=== PATIENT | female | born 1935 | race Asian ===

== ENCOUNTER 2017-02-06 13:56 | Inpatient (IN) | payer BC, MEDICARE, OTHER ==
[~2017-02-06] VITALS: Ht 165.1 cm; Wt 53.5 kg
[~2017-02-06 13:56] MED LIST: IBUPROFEN200 M2 ORAL; MULTIVITAMINS1 EA14 PO; NKM
[2017-02-06] MEDS ORDERED: NKM (14:22)
[2017-02-06 15:07] LABS: ANION GAP 9 mmol/L (5-15); CALCIUM 8.2 MG/DL (8.5-10.1); CARBON DIOXIDE 25 MMOL/L (21-32); CHLORIDE 107 MMOL/L (98-107); CREATININE 0.9 MG/DL (0.55-1.30); POTASSIUM 3.7 MMOL/L (3.5-5.1); SODIUM 141 MMOL/L (136-145)
[2017-02-06 15:19] LABS: MEAN CORPUSCULAR HGB CONC 28.4 G/DL (32.0-36.0); MEAN CORPUSCULAR VOLUME 74 FL (80-99); MEAN PLATELET VOLUME 6.9 FL (6.5-10.1); PLATELET COUNT 227 K/UL (150-450); RED BLOOD COUNT 2.35 M/UL (4.20-5.40); RED CELL DISTRIBUTION WIDTH 21.1 % (11.6-14.8)
[2017-02-06 15:20] LABS: ALANINE AMINOTRANSFERASE 14 U/L (12-78); ALBUMIN/GLOBULIN RATIO 0.7 (1.0-2.7); ASPARTATE AMINO TRANSFERASE 28 U/L (15-37); CKMB 4.7 NG/ML (0.0-3.6); TOTAL PROTEIN 6.3 G/DL (6.4-8.2)
[2017-02-06 16:23] VITALS: BP 133/48
--- NOTE | 2017-02-06 16:33 | Emergency Room Report ---
History of Present Illness General Chief Complaint: Edema Source: Patient Present Illness HPI 81-year-old female presents to ED for evaluation. States that for the last several weeks she's been experiencing leg swelling. Patient denies any chest pain or shortness of breath. States that she does feel tired after walking. Denies fevers or chills. Denies cough. Denies sick contacts or recent travel. No other aggravating relieving factors. Denies any other associated symptoms Allergies: Coded Allergies: No Known Allergies (Unverified , 12/11/12) Patient History Past Medical History: none Past Surgical History: none Pertinent Family History: none Social History: Denies: smoking, alcohol use, drug use Now: No Immunizations: UTD Reviewed Nursing Documentation: PMH: Agreed, PSxH: Agreed Nursing Documentation-PMH Past Medical History: No Stated History Hx Cardiac Problems: No Hx Cancer: No Hx Gastrointestinal Problems: No Hx Neurological Problems: No Review of Systems All Other Systems: negative except mentioned in HPI Physical Exam Vital Signs Date Time Temp Pulse Resp B/P (MAP) Pulse Ox O2 Delivery O2 Flow Rate FiO2 02/06/17 14:14 98.4 72 18 114/70 100 Room Air Sp02 EP Interpretation: reviewed, normal General Appearance: no apparent distress, alert, GCS 15, non-toxic Head: normocephalic, atraumatic Eyes: bilateral eye normal inspection, bilateral eye PERRL ENT: hearing grossly normal, normal pharynx, no angioedema, normal voice Neck: full range of motion, supple/symm/no masses Respiratory: chest non-tender, lungs clear, normal breath sounds, speaking full sentences Cardiovascular #1: regular rate, rhythm, no edema Cardiovascular #2: 2+ carotid (R), 2+ carotid (L), 2+ radial (R), 2+ radial (L) , 2+ dorsalis pedis (R), 2+ dorsalis pedis (L) Gastrointestinal: normal bowel sounds, non tender, soft, non-distended, no guarding, no rebound Rectal: deferred Genitourinary: normal inspection, no CVA tenderness Musculoskeletal: back normal, gait/station normal, normal range of motion, swelling Neurologic: alert, oriented x3, responsive, motor strength/tone normal, sensory intact, speech normal Psychiatric: judgement/insight normal, memory normal, mood/affect normal, no suicidal/homicidal ideation Reflexes: 3+ bicep (R), 3+ bicep (L), 3+ tricep (R), 3+ tricep (L), 3+ knee (R) , 3+ knee (L) Skin: normal color, no rash, warm/dry, well hydrated Lymphatic: no adenopathy Procedures Critical Care Time Critical Care Time i. I feel this is a highly complex case requiring extensive working including EKG/Rhythm strip, Xray/CT/US, Blood/urine lab work, repeat exams while in ED, and administration of strong opiates/narcotics for pain control, admission to hospital or close patient follow up. Total time: 30 min bedside evaluation and treatment excludes procedures (EKG). Reason for critical care: anemia, new onset CHF, demand ischemia Possible complications: hypotension, hypertension, NJ, shock, arrhythmias, metabolic acidosis, end organ damage, respiratory failure. Interventions: Labs, IV fluids, EKG, chest x-ray, blood transfusion Course: Patient presenting with swelling of the bilateral legs, feeling tired. Labs show new onset CHF, hemoglobin 4.9, troponin elevated consistent with demand ischemia. Vital stable. Patient showing no signs of distress. Blood transfusion ordered Consultations: nursing staff, EMS, family Performed by: Dr Tena Tolerated well condition = critical j. because of unstable vital signs this patient had a condition that could potentially threaten life or limb. I feel this is a critical patient who required my full attention while patient was considered critical. Total Critical Care Time excluding procedures was greater than 35 minutes Medical Decision Making Diagnostic Impression: Primary Impression: Acute exacerbation of CHF (congestive heart failure) Qualified Codes: I50.9 - Heart failure, unspecified Additional Impressions: Anemia Qualified Codes: D64.9 - Anemia, unspecified Demand ischemia ER Course Hospital Course 81-year-old female presents ED complaining of shortness of breath, leg swelling Differential diagnoses include: NJ/unstable angina, contusion, muscle strain, PTX, rib fracture Clinical course Patient placed on stretcher. on salvage grinder. After initial history and physical I ordered labs, EKG, chest x-ray, labs reviewed- no leukocytosis, hemoglobin 4.9, electrolytes ok, troponins > 1.5 , BNP elevated EKG - NSR, RBBB, no acute ischemic changes Chest x-ray- CHF Patient not having any active chest pain. No acute ischemic signs on EKG. Elevated troponin likely demand ischemia. upgraded to [facility]. Blood transfusion ordered. Discussed with Dr. Norman Winchester. I feel this is a highly complex case requiring extensive working including EKG/Rhythm strip, Xray/CT/US, Blood/urine lab work, repeat exams while in ED, and administration of strong opiates/narcotics for pain control, admission to hospital or close patient follow up. Diagnosis - CHF exacerbation, anemia, demand ischemia admitted to [facility] in critical condition Labs Test 02/06/17 14:50 02/06/17 15:06 Prothrombin Time 10.0 SEC (9.30-11.50) Prothromb Time International Ratio 1.0 (0.9-1.1) Activated Partial Thromboplast Time 24 SEC (23-33) Sodium Level 141 MMOL/L (136-145) Potassium Level 3.7 MMOL/L (3.5-5.1) Chloride Level 107 MMOL/L (98-107) Carbon Dioxide Level 25 MMOL/L (21-32) Anion Gap 9 mmol/L (5-15) Blood Urea Nitrogen 19 mg/dL (7-18) Creatinine 0.9 MG/DL (0.55-1.30) Estimat Glomerular Filtration Rate mL/min (>60) Glucose Level 102 MG/DL (74-106) Calcium Level 8.2 MG/DL (8.5-10.1) Total Bilirubin 0.3 MG/DL (0.2-1.0) Aspartate Amino Transf (AST/SGOT) 28 U/L (15-37) Alanine Aminotransferase (ALT/SGPT) 14 U/L (12-78) Alkaline Phosphatase 76 U/L (46-116) Total Creatine Kinase 116 U/L (26-308) Creatine Kinase MB 4.7 NG/ML (0.0-3.6) Creatine Kinase MB Relative Index 4.0 Troponin I 1.506 ng/mL (0.000-0.056) Pro-B-Type Natriuretic Peptide 1465 pg/mL (0-125) Total Protein 6.3 G/DL (6.4-8.2) Albumin 2.6 G/DL (3.4-5.0) Globulin 3.7 g/dL Albumin/Globulin Ratio 0.7 (1.0-2.7) White Blood Count 8.0 K/UL (4.8-10.8) Red Blood Count 2.35 M/UL (4.20-5.40) Hemoglobin 4.9 G/DL (12.0-16.0) Hematocrit 17.4 % (37.0-47.0) Mean Corpuscular Volume 74 FL (80-99) Mean Corpuscular Hemoglobin 21.0 PG (27.0-31.0) Mean Corpuscular Hemoglobin Concent 28.4 G/DL (32.0-36.0) Red Cell Distribution Width 21.1 % (11.6-14.8) Platelet Count 227 K/UL (150-450) Mean Platelet Volume 6.9 FL (6.5-10.1) Neutrophils (%) (Auto) % (45.0-75.0) Lymphocytes (%) (Auto) % (20.0-45.0) Monocytes (%) (Auto) % (1.0-10.0) Eosinophils (%) (Auto) % (0.0-3.0) Basophils (%) (Auto) % (0.0-2.0) EKG Diagnostic Results Rate: normal Rhythm: NSR ST Segments: other - RBBB ASA given to the pt in ED: No Rhythm Strip Diag. Results EP Interpretation: yes Rhythm: NSR, no PVC's, no ectopy Chest X-Ray Diagnostic Results Chest X-Ray Diagnostic Results : Chest X-Ray Ordered: Yes # of Views/Limited/Complete: 1 View Indication: Shortness of Breath EP Interpretation: Yes Interpretation: no consolidation, no pneumothorax, other - cardiomegaly. effusion Impression: Other - chf Electronically Signed by: Electronically signed by Iglesia Tena MD Last Vital Signs Date Time Temp Pulse Resp B/P (MAP) Pulse Ox O2 Delivery O2 Flow Rate FiO2 02/06/17 16:23 98.6 66 16 133/48 97 Room Air Status: improved Disposition: ADMITTED INPATIENT Condition: Critical Referrals: LUCIO FRANKLIN (PCP) IGLESIA TENA M.D. Feb 06, 2017 16:33
[2017-02-06 17:09] LABS: NEUTROPHILS % (MANUAL) 68 % (45-75); TOTAL CELLS COUNTED 100
[2017-02-06 17:10] LABS: EOSINOPHILS % (MANUAL) 1 % (0-3); LYMPHOCYTES % (MANUAL) 23 % (20-45)
[2017-02-06 17:11] LABS: ANISOCYTOSIS 3+; BAND NEUTROPHILS % (MANUAL) 0 % (0-8); BASOPHILS % (MANUAL) 1 % (0-2); HYPOCHROMASIA 3+; MICROCYTES 1+; PLATELET ESTIMATE ADEQUATE; PLATELET MORPHOLOGY NORMAL
[2017-02-06 20:00] VITALS: BP 153/81
[2017-02-06] MEDS ORDERED: KCl 10% 20 mEq/15ml liquid ORAL ONE (21:00)
[2017-02-06 21:10] VITALS: BP 148/72
[2017-02-06 21:25] VITALS: BP 123/67
--- NOTE | 2017-02-06 21:45 | Consultation ---
DATE OF CONSULTATION: 02/06/2017 CARDIOLOGY CONSULTATION CONSULTING PHYSICIAN: Blu Hoskins M.D. REQUESTING PHYSICIAN: Norris Austin M.D. REASON FOR CONSULTATION: Acute myocardial infarction. HISTORY OF PRESENT ILLNESS: This is a pleasant 81-year-old [place] Chinese female. She presented to the emergency room with progressive shortness of breath, weakness, and general malaise. She notes symptoms progressing over the past week. She notes on questioning that her stool may have had some blood in it on some occasions although "not much." She denies any nausea or vomiting. She denies any chest pain. She was seen in the emergency room and was noted to have significant anemia with hemoglobin less than 5 g and an elevated troponin level of 1.5. The patient was hospitalized here in March of 2015. At that time, with a wrist pain due to contusion that was treated nonsurgically and at that time, bradyarrhythmias, at which point, the patient refused consideration for a permanent pacemaker. She has not had any subsequent syncopal episodes, dizzy spells, or loss of consciousness. She denies any difficulty with her exercise capacity since March 2015 up until the event precipitating this admission. PAST MEDICAL HISTORY: Status post cataract surgery, osteoarthritis, and sinus node disease. MEDICATIONS: Prior to admission, occasional ibuprofen. ALLERGIES: None. SOCIAL HISTORY: Negative for smoking, alcohol, or substance abuse. FAMILY HISTORY: Noncontributory. REVIEW OF SYSTEMS: A 10-point review of systems performed. All systems negative other than noted above. Additionally in 2016, a 2D echocardiogram done here was notable for normal ejection fraction with minimal degenerative valve disease and normal PA systolic pressures. PHYSICAL EXAMINATION: GENERAL: The patient is well developed, well nourished, slight pallor, and in no acute distress. VITAL SIGNS: Blood pressure 133/48, pulse 66, respirations 16, and afebrile. T-max 99.9. HEENT: Normocephalic and atraumatic. Conjunctival pallor. Oropharynx clear. NECK: Supple. Jugular venous pressure is normal. LUNGS: Clear with no breast masses. CARDIAC: Regular rhythm and rate. Frequent ectopic beats. Normal S1 and S2. A 1/6 systolic murmur in the lower left sternal border. ABDOMEN: Soft and nontender. No focal tenderness, guarding, masses, or rebound. The patient defers stool occult blood test at this time. EXTREMITIES: Good pulses. No edema. NEUROLOGIC: Nonfocal. LABORATORY AND DIAGNOSTIC DATA: White count 8, hemoglobin 4.9, platelet count 227,000, and MCV 74. Sodium 141, potassium 3.7, bicarbonate 25, BUN 19, and creatinine 0.9. Troponin 1.5 Pro-natriuretic peptide 1465. Albumin 2.6. EKG revealed sinus rhythm with arrhythmia, right bundle-branch block, and nonspecific ST change. Chest x-ray revealed pulmonary venous congestion. IMPRESSION: 1. Severe anemia. 2. Acute diastolic congestive heart failure. 3. History of sinus node disease now with sinus arrhythmia and right bundle branch block. 4. Osteoarthritis. 5. Acute myocardial infarction precipitated by severe anemia and hypoperfusion of the coronary bed. PLAN: 1. Cardiac monitoring. 2. Nasal oxygen. 3. Transfuse to hemoglobin above 8 g. 4. Stool occult blood test. 5. Thyroid panel. 6. Empiric H2 chey. 7. No anti-platelet, nonsteroidal, or anticoagulant. 8. Gastrointestinal evaluation to be considered. 9. We will repeat troponin level. 10. Diuresis during transfusion. Blu Hoskins M.D. DR: JANE JOB#: [id number] CC:
[2017-02-07] VITALS (7 sets, daily range): BP systolic 110–147; BP diastolic 60–72
[2017-02-07 02:36] LABS: BASOPHILS % (AUTO) 0.8 % (0.0-2.0); EOSINOPHILS % (AUTO) 1.8 % (0.0-3.0); MEAN CORPUSCULAR HEMOGLOBIN 24.3 PG (27.0-31.0); MEAN CORPUSCULAR HGB CONC 31.6 G/DL (32.0-36.0); MEAN CORPUSCULAR VOLUME 77 FL (80-99); MEAN PLATELET VOLUME 6.6 FL (6.5-10.1); MONOCYTES % (AUTO) 9.9 % (1.0-10.0); NEUTROPHILS % (AUTO) 72.6 % (45.0-75.0); PLATELET COUNT 217 K/UL (150-450); RED BLOOD COUNT 3.51 M/UL (4.20-5.40); RED CELL DISTRIBUTION WIDTH 19.3 % (11.6-14.8); WHITE BLOOD COUNT 9.5 K/UL (4.8-10.8)
[2017-02-07 02:49] LABS: IRON 46 ug/dL (50-175)
[2017-02-07 03:01] LABS: ALANINE AMINOTRANSFERASE 15 U/L (12-78); ALBUMIN/GLOBULIN RATIO 0.6 (1.0-2.7); ANION GAP 8 mmol/L (5-15); ASPARTATE AMINO TRANSFERASE 25 U/L (15-37); CALCIUM 8.3 MG/DL (8.5-10.1); CARBON DIOXIDE 28 MMOL/L (21-32); CHLORIDE 104 MMOL/L (98-107); CHOLESTEROL 122 MG/DL (< 200); CHOLESTEROL/HDL RATIO 2.2 (3.3-4.4); CREATININE 0.8 MG/DL (0.55-1.30); POTASSIUM 2.9 MMOL/L (3.5-5.1); SODIUM 140 MMOL/L (136-145); THYROID STIMULATING HORMONE 3.416 uiU/mL (0.358-3.740); TOTAL PROTEIN 6.7 G/DL (6.4-8.2)
--- NOTE | 2017-02-07 07:50 | General Progress Note ---
Assessment/Plan Problem List: (1) Acute GI bleeding ICD Codes: K92.2 - Gastrointestinal hemorrhage, unspecified SNOMED: 62376607 (2) Dyspnea (3) Bradycardia ICD Codes: R00.1 - Bradycardia, unspecified SNOMED: 47209262 (4) Anemia ICD Codes: D64.9 - Anemia, unspecified SNOMED: 262423809 Qualifiers: Qualified Codes: D64.9 - Anemia, unspecified (5) Acute exacerbation of CHF (congestive heart failure) ICD Codes: I50.9 - Heart failure, unspecified SNOMED: 52747207 Qualifiers: Qualified Codes: I50.9 - Heart failure, unspecified Status: stable Assessment/Plan check stool ob iron panel gi eval diuresis follow up echo results Subjective ROS Limited/Unobtainable: No Constitutional: Reports: malaise, weakness HEENT: Reports: no symptoms Cardiovascular: Reports: no symptoms Respiratory: Reports: no symptoms Gastrointestinal/Abdominal: Reports: no symptoms Genitourinary: Reports: no symptoms Neurologic/Psychiatric: Reports: no symptoms Endocrine: Reports: no symptoms Hematologic/Lymphatic: Reports: no symptoms Allergies: Coded Allergies: No Known Allergies (Unverified , 12/11/12) All Systems: reviewed and negative except above Subjective no complaints. h/h better after 2 units. no cp/sob. Objective Last 24 Hour Vital Signs Date Time Temp Pulse Resp B/P (MAP) Pulse Ox O2 Delivery O2 Flow Rate FiO2 02/07/17 04:00 64 02/07/17 04:00 98.8 65 18 135/68 98 Room Air 02/07/17 01:00 98.7 64 18 138/67 98 Room Air 02/07/17 00:00 85 02/07/17 00:00 99.0 64 18 130/70 98 Room Air 02/06/17 21:25 99.3 67 18 123/67 98 Room Air 02/06/17 21:10 99.3 68 18 148/72 98 Room Air 02/06/17 20:00 99.1 66 18 153/81 97 Room Air 02/06/17 19:41 68 22 128/61 94 Room Air 02/06/17 19:25 99.2 68 22 02/06/17 19:10 99.9 66 18 02/06/17 16:23 98.6 66 16 133/48 97 Room Air 02/06/17 14:40 70 16 Room Air 02/06/17 14:14 98.4 72 18 114/70 100 Room Air Laboratory Tests 02/06/17 14:50: Prothrombin Time 10.0, Prothromb Time International Ratio 1.0, Activated Partial Thromboplast Time 24, Sodium Level 141, Potassium Level 3.7, Chloride Level 107, Carbon Dioxide Level 25, Anion Gap 9, Blood Urea Nitrogen 19H, Creatinine 0.9, Estimat Glomerular Filtration Rate , Glucose Level 102, Calcium Level 8.2L, Total Bilirubin 0.3, Aspartate Amino Transf (AST/SGOT) 28, Alanine Aminotransferase (ALT/SGPT) 14, Alkaline Phosphatase 76, Total Creatine Kinase 116, Creatine Kinase MB 4.7H, Creatine Kinase MB Relative Index 4.0, Troponin I 1.506H, Pro-B-Type Natriuretic Peptide 1465H, Total Protein 6.3L, Albumin 2.6L, Globulin 3.7, Albumin/Globulin Ratio 0.7L 02/06/17 15:06: White Blood Count 8.0, Red Blood Count 2.35L, Hemoglobin 4.9*L, Hematocrit 17.4L , Mean Corpuscular Volume 74L, Mean Corpuscular Hemoglobin 21.0L, Mean Corpuscular Hemoglobin Concent 28.4L, Red Cell Distribution Width 21.1H, Platelet Count 227, Mean Platelet Volume 6.9, Neutrophils (%) (Auto) , Lymphocytes (%) (Auto) , Monocytes (%) (Auto) , Eosinophils (%) (Auto) , Basophils (%) (Auto) , Differential Total Cells Counted 100, Neutrophils % ( Manual) 68, Lymphocytes % (Manual) 23, Monocytes % (Manual) 7, Eosinophils % ( Manual) 1, Basophils % (Manual) 1, Band Neutrophils 0, Platelet Estimate Adequate, Platelet Morphology Normal, Hypochromasia 3+, Anisocytosis 3+, Microcytosis 1+ 02/07/17 02:10: Sodium Level 140, Potassium Level 2.9L, Chloride Level 104, Carbon Dioxide Level 28, Anion Gap 8, Blood Urea Nitrogen 15, Creatinine 0.8, Estimat Glomerular Filtration Rate , Glucose Level 101, Calcium Level 8.3L, Total Bilirubin 0.8, Aspartate Amino Transf (AST/SGOT) 25, Alanine Aminotransferase ( ALT/SGPT) 15, Alkaline Phosphatase 84, Troponin I 1.086H, Pro-B-Type Natriuretic Peptide 1765H, Total Protein 6.7, Albumin 2.6L, Globulin 4.1, Albumin/Globulin Ratio 0.6L, White Blood Count 9.5, Red Blood Count 3.51L, Hemoglobin 8.5#L, Hematocrit 27.0#L, Mean Corpuscular Volume 77L, Mean Corpuscular Hemoglobin 24.3L, Mean Corpuscular Hemoglobin Concent 31.6L, Red Cell Distribution Width 19.3H, Platelet Count 217, Mean Platelet Volume 6.6, Neutrophils (%) (Auto) 72.6, Lymphocytes (%) (Auto) 15.0L, Monocytes (%) (Auto) 9.9, Eosinophils (%) (Auto) 1.8, Basophils (%) (Auto) 0.8, Iron Level 46L, Triglycerides Level 47, Cholesterol Level 122, LDL Cholesterol 62, HDL Cholesterol 55, Cholesterol/HDL Ratio 2.2L, Thyroid Stimulating Hormone (TSH) 3.416 Height (Feet): 5 Height (Inches): 1.00 Weight (Pounds): 118 General Appearance: WD/WN, alert Neck: supple Cardiovascular: normal rate Respiratory/Chest: chest wall non-tender, lungs clear, normal breath sounds Abdomen: normal bowel sounds, non tender, soft, no organomegaly Edema: trace edema Neurologic: crm coordinator II-XII grossly normal, no motor/sensory deficits LUCIO FRANKLIN Feb 07, 2017 07:50
--- NOTE | 2017-02-07 10:53 | Diagnostic Imaging Report ---
Indication: SOB Technique: One view of the chest Comparison: 12/18/2012 Findings: Calcific granulomata and reticular opacities and volume loss are seen in the left upper lobe. Previously demonstrated right basilar atelectasis is resolved. A small band of atelectasis is seen in the right perihilar region There is slight blunting of both costophrenic angles, which appears similar to the prior exam. The heart is upper limits normal in size. Inspiration is less optimal currently. Impression: Evidence of chronic adenomatous disease and fibrosis in the left upper lobe Bilateral costophrenic angle blunting, could represent a small pleural effusion but could also represent pleural thickening Minimal right perihilar atelectasis
--- NOTE | 2017-02-07 11:00 | History and Physical Report ---
DATE OF ADMISSION: 02/06/2017 CHIEF COMPLAINT: Lower extremity edema and shortness of breath. HISTORY OF PRESENT ILLNESS: The patient is a pleasant 81-year-old female. She has no past medical history, but presented with complaints of one week of mild shortness of breath and lower extremity edema. She has been taking Advil for the last several months. For the last several days, she has been taking up to Advil a day. On evaluation in the emergency room, the patient was noted to have hemoglobin of 4.9. She had some lower extremity edema that was consistent with possibly some mild CHF. She had an elevated troponin of 1.5 and natriuretic peptide level of 1400. The patient was has been typed and crossed. She is currently pending transfusion. She denies any melena. She has had no bright red blood per rectum. No hematemesis. PAST MEDICAL HISTORY: None except for back pain. PAST SURGICAL HISTORY: None. CURRENT MEDICATIONS: None except for Motrin. FAMILY HISTORY: Noncontributory. SOCIAL HISTORY: There is no known history of tobacco, ethanol, or drugs. REVIEW OF SYSTEMS: Significant for:HEENT: No headaches or visual changes. No fever, chills, or weight loss. CARDIOPULMONARY: No chest pain. Mild shortness of breath. Mild lower extremity edema. GASTROINTESTINAL: No nausea, no vomiting. No melena or bright red blood per rectum. GENITOURINARY: No urgency or frequency. MUSCULOSKELETAL: No joint pain or swelling. NEUROLOGIC: No evidence of seizures. PHYSICAL EXAMINATION: VITAL SIGNS: Temperature 99.1, blood pressure 153/81, pulse 66, respirations 18. GENERAL: The patient is a well-developed female in no apparent distress. HEART: Regular rate and rhythm. LUNGS: Clear. ABDOMEN: Soft, nontender, nondistended. EXTREMITIES: Trace pitting edema. LABORATORY DATA: Sodium 141, potassium 3.7, creatinine is 0.9. Troponin 1.5. Natriuretic peptide level is 1400. White count was 4.9 and platelet count of 227,000. Coagulation studies normal. ASSESSMENT: This is a pleasant female admitted with complaints of shortness of breath secondary to anemia. PROBLEM LIST: 1. Shortness of breath. 2. Anemia, suspect gastrointestinal bleed. 3. Acute myocardial infarction, possibly secondary to anemia. 4. Congestive heart failure. PLAN: Transfuse to hemoglobin greater than 8.5. Cardiology consultation. GI consultation. Check stool for occult blood. Cautious diuresis. No antiplatelet therapy in light of the concern about GI bleed. Norris Austin M.D. DR: Teja JOB#: [id number] CC:
--- NOTE | 2017-02-07 14:13 | Cardiology Report ---
APPROVED REPORT EXAM: Two-dimensional and M-mode echocardiogram with Doppler and color Doppler. INDICATION Acute Myocardial Infarction M-Mode DIMENSIONS IVSd1.4 (0.7-1.1cm)Left Atrium (MM)3.1 (1.6-4.0cm) LVDd4.2 (3.5-5.6cm)Aortic Root3.7 (2.0-3.7cm) PWd1.3 (0.7-1.1cm)Aortic Cusp Exc.1.7 (1.5-2.0cm) LVDs2.4 (2.5-4.0cm) PWs1.7 cm Normal left ventricular chamber size, systolic function and wall motion. Left ventricular ejection fraction estimated to be 55-60%. Borderline mild left ventricular hypertrophy. No evidence of pericardial effusion. Left atrial size at upper limits of normal. Mildly enlarged right atrium. Right ventricular chamber size is within normal limits. Focal aortic valve sclerosis with adequate cusp excursion. Thickened mitral valve leaflets with normal excursion. Mild mitral annulus and aortic root calcification. Normal pulmonic valve structure. Normal tricuspid valve structure. IVC at normal size with physiologic collapse. A color flow and spectral Doppler study was performed and revealed: Trace aortic regurgitation. Moderate mitral regurgitation. Mitral inflow velocities indicates possible pseudo normalization pattern implying moderately elevated left atrial pressure (Grade II ). Moderate to severe tricuspid regurgitation. Tricuspid systolic velocities suggests peak right ventricular systolic pressure of 61 mmHg, consistent with severe pulmonary hypertension. Moderate pulmonic regurgitation present.
--- NOTE | 2017-02-07 19:15 | Progress Note ---
DATE: 02/07/2017 CARDIOLOGY PROGRESS NOTE SUBJECTIVE: The patient has no chest pain. She has less shortness of breath. She was diuresed last night and concomitantly received two units of packed red blood cells. PHYSICAL EXAMINATION: VITAL SIGNS: T-max 99.3, blood pressure 125/68, pulse 65, respiratory rate 18. Monitor sinus arrhythmia with PACs. LUNGS: Bilateral breath sounds. Few rales. HEART: Regular rhythm and rate with occasional ectopic beats. Normal S1 and S2. A 1/6 early systolic apical murmur. ABDOMEN: Soft and nontender. No guarding or rebound. EXTREMITIES: With trace edema of both lower extremity. LABORATORY AND DIAGNOSTIC DATA: White count 9.5, hemoglobin 8.5. Stool occult blood pending. Sodium 140, potassium 2.9, bicarbonate 28, BUN 15, creatinine 0.8. Troponin decreased from 1.5 to 1.08. Pro-natriuretic peptide is 1765. Albumin 2.6. TSH 3.4. Echocardiogram today revealed ejection fraction of 55% to 60% with severe pulmonary hypertension with PA systolic of 61, moderate mitral and tricuspid regurgitation. IMPRESSION: 1. Severe anemia. 2. Acute myocardial infarction. 3. Acute diastolic congestive heart failure. 4. Probable gastrointestinal bleed. 5. Hypokalemia post diuresis. 6. Moderate protein-calorie malnutrition. 7. Degenerative valve disease. 8. Severe pulmonary hypertension. 9. Sinus node disease with history of bradycardia and arrhythmia PLAN: 1. Replace potassium. 2. Continue cardiac monitoring. 3. Continue diuresis. 4. Add beta-chey with caution in view of sinus node disease. 5. No anti-platelet therapy in view of active bleeding. 6. Repeat potassium and magnesium level. Blu Hoskins M.D. DR: Astrid JOB#: [id number] CC:
--- NOTE | 2017-02-07 21:48 | General Progress Note ---
Assessment/Plan Assessment/Plan GI CONSULT Dictated Suspect subacute/chronic GI bleed, possibly related to multiple NSAID use Discussed with Cardiology Would Rx with IV Fe.and BID PPI Hold NSAID At higher GIB risk with ASA use, but reasonable to give in setting of acute [place] while watching closely Monitor CBC EGD/Colon at later date once cleared by cardiology Thank you Amanda Varma Subjective Allergies: Coded Allergies: No Known Allergies (Unverified , 12/11/12) Objective Last 24 Hour Vital Signs Date Time Temp Pulse Resp B/P (MAP) Pulse Ox O2 Delivery O2 Flow Rate FiO2 02/07/17 21:11 94 110/60 02/07/17 20:00 97.9 94 19 110/60 98 Room Air 02/07/17 20:00 59 02/07/17 16:08 97.9 65 19 124/72 100 Room Air 02/07/17 15:45 65 02/07/17 12:00 97.9 61 20 130/71 100 Room Air 02/07/17 12:00 62 02/07/17 08:00 60 02/07/17 08:00 98.1 60 18 147/62 100 Room Air 02/07/17 04:00 64 02/07/17 04:00 98.8 65 18 135/68 98 Room Air 02/07/17 01:00 98.7 64 18 138/67 98 Room Air 02/07/17 00:00 85 02/07/17 00:00 99.0 64 18 130/70 98 Room Air Intake and Output 02/07/17 02/08/17 19:00 07:00 Intake Total 210 ml Output Total 320 ml Balance -110 ml Intake Oral 210 ml Output Urine Total 320 ml # Voids 3 # Bowel Movements 1 Laboratory Tests 02/07/17 02:10: White Blood Count 9.5, Red Blood Count 3.51L, Hemoglobin 8.5#L, Hematocrit 27.0# L, Mean Corpuscular Volume 77L, Mean Corpuscular Hemoglobin 24.3L, Mean Corpuscular Hemoglobin Concent 31.6L, Red Cell Distribution Width 19.3H, Platelet Count 217, Mean Platelet Volume 6.6, Neutrophils (%) (Auto) 72.6, Lymphocytes (%) (Auto) 15.0L, Monocytes (%) (Auto) 9.9, Eosinophils (%) (Auto) 1.8, Basophils (%) (Auto) 0.8, Sodium Level 140, Potassium Level 2.9L, Chloride Level 104, Carbon Dioxide Level 28, Anion Gap 8, Blood Urea Nitrogen 15, Creatinine 0.8, Estimat Glomerular Filtration Rate , Glucose Level 101, Calcium Level 8.3L, Iron Level 46L, Total Bilirubin 0.8, Aspartate Amino Transf (AST/ SGOT) 25, Alanine Aminotransferase (ALT/SGPT) 15, Alkaline Phosphatase 84, Troponin I 1.086H, Pro-B-Type Natriuretic Peptide 1765H, Total Protein 6.7, Albumin 2.6L, Globulin 4.1, Albumin/Globulin Ratio 0.6L, Triglycerides Level 47 , Cholesterol Level 122, LDL Cholesterol 62, HDL Cholesterol 55, Cholesterol/ HDL Ratio 2.2L, Thyroid Stimulating Hormone (TSH) 3.416 02/07/17 15:40: Stool Occult Blood [Pending] Height (Feet): 5 Height (Inches): 1.00 Weight (Pounds): 118 LETA VARMA Feb 07, 2017 21:48
[2017-02-08] VITALS: BP 108/55
[2017-02-08 04:00] VITALS: BP 112/68
[2017-02-08 05:00] LABS: BASOPHILS % (AUTO) 1.2 % (0.0-2.0); EOSINOPHILS % (AUTO) 7.4 % (0.0-3.0); LYMPHOCYTES % (AUTO) 22.2 % (20.0-45.0); MEAN CORPUSCULAR HEMOGLOBIN 24.4 PG (27.0-31.0); MEAN CORPUSCULAR HGB CONC 31.9 G/DL (32.0-36.0); MEAN CORPUSCULAR VOLUME 77 FL (80-99); MEAN PLATELET VOLUME 7.1 FL (6.5-10.1); MONOCYTES % (AUTO) 10.8 % (1.0-10.0); NEUTROPHILS % (AUTO) 58.4 % (45.0-75.0); PLATELET COUNT 208 K/UL (150-450); RED BLOOD COUNT 3.32 M/UL (4.20-5.40); RED CELL DISTRIBUTION WIDTH 19.9 % (11.6-14.8)
[2017-02-08 05:29] LABS: IRON 13 ug/dL (50-175); TOTAL IRON BINDING CAPACITY 311 ug/dL (250-450)
[2017-02-08 05:39] LABS: ANION GAP 4 mmol/L (5-15); CALCIUM 7.7 MG/DL (8.5-10.1); CARBON DIOXIDE 31 MMOL/L (21-32); CHLORIDE 104 MMOL/L (98-107); CREATININE 0.9 MG/DL (0.55-1.30); FERRITIN 14 NG/ML (8-388); MAGNESIUM 1.4 MG/DL (1.8-2.4); POTASSIUM 3.5 MMOL/L (3.5-5.1); SODIUM 139 MMOL/L (136-145)
[2017-02-08 08:00] VITALS: BP 134/76
--- NOTE | 2017-02-08 08:15 | Consultation ---
DATE OF CONSULTATION: 02/07/2017 GASTROENTEROLOGY CONSULTATION CONSULTING PHYSICIAN: Amy Varma M.D. CHIEF COMPLAINT: I was asked to see this patient by Dr. Blu Hoskins and Dr. Norris Austin for evaluation of severe anemia. HISTORY OF PRESENT ILLNESS: The patient is a pleasant 81-year-old woman, who has been using Advil for several months for neck and back pain. She initially used the pills once or twice a day and then became three to four times a day and eventually used it up so much that by the time she was admitted, she was taking 12 to 14 tablets a day and this is for the past 10 days. She came to the hospital because she felt weak and short of breath and with lower extremity edema. She was found to have a hemoglobin of 4.1 and some lower extremity edema consistent with mild CHF. Also, troponin was mildly elevated consistent with acute myocardial infarction. She was admitted and she has been transfused. She feels better. Her vital signs are stable. She denies any hematochezia or melena. She has never had an endoscopy or colonoscopy. She is currently off of aspirin and is undergoing post myocardial infarction care. PAST MEDICAL HISTORY: Negative except for back pain. PAST SURGICAL HISTORY: None. MEDICATIONS: Motrin, [id number] Advil. FAMILY HISTORY: Noncontributory. SOCIAL HISTORY: The patient does not smoke or drink alcohol. REVIEW OF SYSTEMS: Otherwise negative. PHYSICAL EXAMINATION: GENERAL: The patient is a pleasant, elderly woman, seen in her room. HEENT: Normocephalic and atraumatic. Sclerae anicteric. Oropharynx clear. NECK: Supple. CHEST: Clear to auscultation. CARDIOVASCULAR: Revealed a regular rate. ABDOMEN: Soft. Good bowel sounds. There is no organomegaly or tenderness. EXTREMITIES: Revealed no edema. LABORATORY DATA: Noted. ASSESSMENT: This patient presents with severe anemia and there was also myocardial infarction, which appears to be slow reverted. The pattern of bleeding suggests more of a subacute bleeding, possibly related to the patient's drug abuse and nonsteroidal antiinflammatory drugs. The patient will need to be replaced with blood products and iron as necessary. I will check her iron panel first tomorrow. The patient is at risk for gastroscope bleeding if aspirin is used. However, given her acute myocardial infarction, the risk-benefit ratio may still be somewhat favorable for aspirin use in a controlled inpatient setting. I will place the patient on twice daily proton pump inhibitor while the patient gets aspirin. Should the aspirin be restarted by Cardiology for post myocardial infarction care, her CBC should be checked. She will be watched for recurrent bleeding. Once the patient is cleared from a cardiac standpoint, she is to undergo endoscopy and colonoscopy to evaluate upper and lower gastrointestinal tract. The patient was strongly advised to avoid at this time the use of nonsteroidal antiinflammatory drugs. RECOMMENDATIONS: 1. P.o. diet as tolerated. 2. Daily CBC. 3. Proton pump inhibitor twice daily IV. 4. We will defer the use of aspirin to Cardiology who saw this patient. 5. Myocardial infarction. Evaluation per Cardiology. 6. Endoscopy and colonoscopy later today once cleared from a cardiac standpoint. Thank you for asking me to participate in the care of this patient. Amy Varma M.D. DR: Robinson JOB#: [id number] CC: MARTINEZ
--- NOTE | 2017-02-08 10:00 | General Progress Note ---
Assessment/Plan Problem List: (1) Acute GI bleeding ICD Codes: K92.2 - Gastrointestinal hemorrhage, unspecified SNOMED: 13743796 (2) Dyspnea (3) Bradycardia ICD Codes: R00.1 - Bradycardia, unspecified SNOMED: 24575979 (4) Anemia ICD Codes: D64.9 - Anemia, unspecified SNOMED: 400648374 Qualifiers: Qualified Codes: D64.9 - Anemia, unspecified (5) Acute exacerbation of CHF (congestive heart failure) ICD Codes: I50.9 - Heart failure, unspecified SNOMED: 99431788 Qualifiers: Qualified Codes: I50.9 - Heart failure, unspecified Status: stable, progressing Assessment/Plan check stool ob iron supplements endoscopy ppi diuresis dc coreg- bradyardia. family states they have been told pt prior MD that she needs a pacemaker will monitor Subjective ROS Limited/Unobtainable: No Constitutional: Reports: malaise, weakness HEENT: Reports: no symptoms Cardiovascular: Reports: lightheadedness Respiratory: Reports: no symptoms Gastrointestinal/Abdominal: Reports: abdominal pain Genitourinary: Reports: no symptoms Neurologic/Psychiatric: Reports: no symptoms Endocrine: Reports: no symptoms Hematologic/Lymphatic: Reports: anemia Allergies: Coded Allergies: No Known Allergies (Unverified , 12/11/12) All Systems: reviewed and negative except above Subjective no complaints. dizzy. HR in the 40s. coreg held this am. no bleeding noted. Objective Last 24 Hour Vital Signs Date Time Temp Pulse Resp B/P (MAP) Pulse Ox O2 Delivery O2 Flow Rate FiO2 02/08/17 08:22 48 134/76 02/08/17 08:00 97.0 48 18 134/76 97 Room Air 02/08/17 08:00 50 02/08/17 04:00 51 02/08/17 04:00 97.9 69 18 112/68 99 Room Air 02/08/17 00:00 53 02/08/17 00:00 97.3 58 19 108/55 98 Room Air 02/07/17 21:11 94 110/60 02/07/17 20:00 97.9 94 19 110/60 98 Room Air 02/07/17 20:00 59 02/07/17 16:08 97.9 65 19 124/72 100 Room Air 02/07/17 15:45 65 02/07/17 12:00 97.9 61 20 130/71 100 Room Air 02/07/17 12:00 62 Laboratory Tests 02/07/17 15:40: Stool Occult Blood Negative 02/08/17 03:40: White Blood Count 8.0, Red Blood Count 3.32L, Hemoglobin 8.1L, Hematocrit 25.4L , Mean Corpuscular Volume 77L, Mean Corpuscular Hemoglobin 24.4L, Mean Corpuscular Hemoglobin Concent 31.9L, Red Cell Distribution Width 19.9H, Platelet Count 208, Mean Platelet Volume 7.1, Neutrophils (%) (Auto) 58.4, Lymphocytes (%) (Auto) 22.2, Monocytes (%) (Auto) 10.8H, Eosinophils (%) (Auto) 7.4H, Basophils (%) (Auto) 1.2, Sodium Level 139, Potassium Level 3.5, Chloride Level 104, Carbon Dioxide Level 31, Anion Gap 4L, Blood Urea Nitrogen 13, Creatinine 0.9, Estimat Glomerular Filtration Rate , Glucose Level 93, Calcium Level 7.7L, Magnesium Level 1.4L, Iron Level 13L, Total Iron Binding Capacity 311, Percent Iron Saturation 4L, Unsaturated Iron Binding 298, Ferritin 14, Troponin I 0.599H Height (Feet): 5 Height (Inches): 1.00 Weight (Pounds): 118 Objective General Appearance: WD/WN, alert Neck: supple Cardiovascular: normal rate Respiratory/Chest: chest wall non-tender, lungs clear, normal breath sounds Abdomen: normal bowel sounds, non tender, soft, no organomegaly Edema: trace edema 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
[2017-02-08] MEDS ORDERED: Pantoprazole Inj IVP SCH (11:00)
[2017-02-08 12:00] VITALS: BP 142/89
[2017-02-08 16:00] VITALS: BP 115/69
[2017-02-08 20:00] VITALS: BP 140/69
[2017-02-08] MEDS: Iron Sucrose 100 MG in NS 55 ML IV SCH (20:54)
--- NOTE | 2017-02-08 22:12 | General Progress Note ---
Assessment/Plan Assessment/Plan Assessment - Anemia - presumed GI Bleed, although currently OB (-) - Acute [place] Recommendations - advance po diet - monitor H&HJ - EGD when cleared by cardiology Subjective Allergies: Coded Allergies: No Known Allergies (Unverified , 12/11/12) Subjective Feels well tolerating PO no melena stools OB (-) Objective Last 24 Hour Vital Signs Date Time Temp Pulse Resp B/P (MAP) Pulse Ox O2 Delivery O2 Flow Rate FiO2 02/08/17 20:00 98.1 55 18 140/69 98 Room Air 02/08/17 18:10 97.9 02/08/17 16:00 61 02/08/17 16:00 97.9 80 18 115/69 95 Room Air 02/08/17 12:00 55 02/08/17 12:00 97.9 55 19 142/89 96 Room Air 02/08/17 08:22 48 134/76 02/08/17 08:00 97.0 48 18 134/76 97 Room Air 02/08/17 08:00 50 02/08/17 04:00 51 02/08/17 04:00 97.9 69 18 112/68 99 Room Air 02/08/17 00:00 53 02/08/17 00:00 97.3 58 19 108/55 98 Room Air Intake and Output 02/08/17 02/09/17 19:00 07:00 Intake Total 320 ml Balance 320 ml Intake Oral 120 ml IV Total 200 ml # Voids 2 # Bowel Movements 2 Laboratory Tests 02/08/17 03:40: White Blood Count 8.0, Red Blood Count 3.32L, Hemoglobin 8.1L, Hematocrit 25.4L , Mean Corpuscular Volume 77L, Mean Corpuscular Hemoglobin 24.4L, Mean Corpuscular Hemoglobin Concent 31.9L, Red Cell Distribution Width 19.9H, Platelet Count 208, Mean Platelet Volume 7.1, Neutrophils (%) (Auto) 58.4, Lymphocytes (%) (Auto) 22.2, Monocytes (%) (Auto) 10.8H, Eosinophils (%) (Auto) 7.4H, Basophils (%) (Auto) 1.2, Sodium Level 139, Potassium Level 3.5, Chloride Level 104, Carbon Dioxide Level 31, Anion Gap 4L, Blood Urea Nitrogen 13, Creatinine 0.9, Estimat Glomerular Filtration Rate , Glucose Level 93, Calcium Level 7.7L, Magnesium Level 1.4L, Iron Level 13L, Total Iron Binding Capacity 311, Percent Iron Saturation 4L, Unsaturated Iron Binding 298, Ferritin 14, Troponin I 0.599H Height (Feet): 5 Height (Inches): 1.00 Weight (Pounds): 118 Objective Thin woman NCAT supple CTA RRR soft ND NT no edema LETA CAMARENA Feb 08, 2017 22:12
--- NOTE | 2017-02-08 23:30 | Progress Note ---
DATE: 02/08/2017 CARDIOLOGY PROGRESS NOTE SUBJECTIVE: The patient has not had any new bleeding noted. She has had episodes of heart rate in the 40s overnight. OBJECTIVE: VITAL SIGNS: Blood pressure 134/76, heart rate 48, respiratory rate 18. NECK: Supple. LUNGS: Clear. CARDIAC: Regular rhythm. Slow rate. Normal S1, S2. Occasional ectopic beat. ABDOMEN: Soft. No focal tenderness or edema. LABORATORY DATA: White count 8, hemoglobin 8.1. Iron saturation is 94%. Potassium 3.5, magnesium 1.4. Troponin down to 0.599. Stool occult blood negative. IMPRESSION: 1. Acute myocardial infarction. 2. Severe anemia. 3. Severe iron deficiency. 4. Hypomagnesemia. 5. Borderline hypokalemia. 6. Acute diastolic congestive heart failure. 7. Sinus node disease with bradycardia, likely exacerbated by beta-chey. PLAN: Discontinue beta-chey. Serial hemoglobin. IV iron. Hold invasive gastrointestinal procedures until more stable from cardiovascular standpoint. No anti-platelet or anticoagulants at this time. Repeat stool occult blood. Blu Hoskins M.D. DR: Shelly JOB#: [id number] CC:
[2017-02-09] VITALS (8 sets, daily range): BP systolic 116–154; BP diastolic 61–82
[2017-02-09 04:54] LABS: MEAN CORPUSCULAR HEMOGLOBIN 24.4 PG (27.0-31.0); MEAN CORPUSCULAR HGB CONC 31.4 G/DL (32.0-36.0); MEAN CORPUSCULAR VOLUME 78 FL (80-99); MEAN PLATELET VOLUME 7.3 FL (6.5-10.1); PLATELET COUNT 215 K/UL (150-450); RED BLOOD COUNT 3.22 M/UL (4.20-5.40); RED CELL DISTRIBUTION WIDTH 20.5 % (11.6-14.8); WHITE BLOOD COUNT 8.4 K/UL (4.8-10.8)
--- NOTE | 2017-02-09 07:51 | General Progress Note ---
Assessment/Plan Problem List: (1) Acute GI bleeding ICD Codes: K92.2 - Gastrointestinal hemorrhage, unspecified SNOMED: 29308538 (2) Dyspnea (3) Bradycardia ICD Codes: R00.1 - Bradycardia, unspecified SNOMED: 78412649 (4) Anemia ICD Codes: D64.9 - Anemia, unspecified SNOMED: 556308407 Qualifiers: Qualified Codes: D64.9 - Anemia, unspecified (5) Acute exacerbation of CHF (congestive heart failure) ICD Codes: I50.9 - Heart failure, unspecified SNOMED: 55268834 Qualifiers: Qualified Codes: I50.9 - Heart failure, unspecified Status: stable, progressing Assessment/Plan check stool ob iron supplements endoscopy when cleared by cards ppi diuresis pain rx Subjective ROS Limited/Unobtainable: No Constitutional: Reports: weakness HEENT: Reports: no symptoms Cardiovascular: Reports: no symptoms Respiratory: Reports: no symptoms Gastrointestinal/Abdominal: Reports: abdominal pain Genitourinary: Reports: no symptoms Neurologic/Psychiatric: Reports: no symptoms Endocrine: Reports: no symptoms Hematologic/Lymphatic: Reports: anemia Allergies: Coded Allergies: No Known Allergies (Unverified , 12/11/12) All Systems: reviewed and negative except above Subjective c/o back pain. abd pain better. decrease h/h noted. no bleeding. bradycardia improving. lowest hr 58 per RN Objective Last 24 Hour Vital Signs Date Time Temp Pulse Resp B/P (MAP) Pulse Ox O2 Delivery O2 Flow Rate FiO2 02/09/17 04:00 63 02/09/17 04:00 97.9 49 20 138/71 99 Room Air 02/09/17 00:00 56 02/09/17 00:00 98.6 58 18 116/70 99 Room Air 02/08/17 20:00 98.1 55 18 140/69 98 Room Air 02/08/17 20:00 58 02/08/17 18:10 97.9 02/08/17 16:00 61 02/08/17 16:00 97.9 80 18 115/69 95 Room Air 02/08/17 12:00 55 02/08/17 12:00 97.9 55 19 142/89 96 Room Air 02/08/17 08:22 48 134/76 02/08/17 08:00 97.0 48 18 134/76 97 Room Air 02/08/17 08:00 50 Laboratory Tests 02/09/17 03:40: White Blood Count 8.4, Red Blood Count 3.22L, Hemoglobin 7.9L, Hematocrit 25.1L , Mean Corpuscular Volume 78L, Mean Corpuscular Hemoglobin 24.4L, Mean Corpuscular Hemoglobin Concent 31.4L, Red Cell Distribution Width 20.5H, Platelet Count 215, Mean Platelet Volume 7.3, Neutrophils (%) (Auto) , Lymphocytes (%) (Auto) , Monocytes (%) (Auto) , Eosinophils (%) (Auto) , Basophils (%) (Auto) Height (Feet): 5 Height (Inches): 1.00 Weight (Pounds): 118 Objective General Appearance: WD/WN, alert Neck: supple Cardiovascular: normal rate Respiratory/Chest: chest wall non-tender, lungs clear, normal breath sounds Abdomen: normal bowel sounds, non tender, soft, no organomegaly Edema: trace edema 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
[2017-02-09] MEDS ORDERED: Norco 10mg/325mg tab ORAL PRN ×2 (08:00→08:30)
[2017-02-09] MEDS ORDERED: Tubing Blood Filter IV ONE (16:10)
[2017-02-09] MEDS ORDERED: NS 500ML ONE ×2 (16:10→16:20)
[2017-02-09] MEDS ORDERED: Tubing IV Secondary IV ONE (16:20)
[2017-02-09] MEDS ORDERED: KCl 10% 20 mEq/15ml liquid ORAL ONE (18:30)
[2017-02-09] MEDS ORDERED: KCl 10% 40mEq/30ml liquid ORAL ONE (18:30)
[2017-02-09] MEDS: Iron Sucrose 100 MG in NS 55 ML IV SCH (21:00)
--- NOTE | 2017-02-09 22:00 | Progress Note ---
DATE: 02/09/2017 CARDIOLOGY PROGRESS NOTE SUBJECTIVE: The patient has not had any new complaints. Still somewhat short of breath at times. No new laboratories today other than her hemoglobin remained at 7.9 from an 8.1 yesterday. The patient has had 1 stool occult blood test that was negative. She denies chest pain. OBJECTIVE: VITAL SIGNS: Blood pressure 151/79, pulse 65, respirations 20, and afebrile. NECK: Supple. LUNGS: With few rales. CARDIAC: Regular rhythm and rate. Normal S1 and S2 with a fourth heart sound. ABDOMEN: Soft and nontender. EXTREMITIES: No edema. IMPRESSION: 1. Severe anemia. 2. Severe iron deficiency. 3. Acute myocardial infarction. 4. Acute diastolic congestive heart failure. 5. Sinus node disease with sinus arrhythmia and bradycardia, intolerant to beta-chey several days ago. 6. Hypomagnesemia. PLAN: 1. Continue Venofer. 2. Recheck troponin. 3. Nasal oxygen. 4. No antiplatelet or anticoagulants. 5. Repeat stool occult blood. 6. Consider panendoscopy once cardiovascular parameters are more stable. 7. Status post magnesium replacement. 8. Additional diuresis with potassium replacement. Blu Hoskins M.D. DR: JOSE CRUZ JOB#: [id number] CC:
--- NOTE | 2017-02-09 22:51 | General Progress Note ---
Assessment/Plan Assessment/Plan Assessment - Anemia - presumed GI Bleed, although currently OB (-) - Acute [place] Recommendations - advance po diet - monitor H&HJ - EGD when cleared by cardiology Subjective Allergies: Coded Allergies: No Known Allergies (Unverified , 12/11/12) Subjective Feels well tolerating PO no abd complaints Objective Last 24 Hour Vital Signs Date Time Temp Pulse Resp B/P (MAP) Pulse Ox O2 Delivery O2 Flow Rate FiO2 02/09/17 20:00 59 02/09/17 20:00 98.1 64 20 140/79 94 Room Air 02/09/17 16:00 77 02/09/17 16:00 97.9 65 20 151/79 94 Room Air 02/09/17 13:00 97.2 61 20 154/82 97 Room Air 02/09/17 12:00 57 02/09/17 11:10 97.8 57 20 141/76 97 Room Air 02/09/17 10:55 97.7 57 20 121/61 97 Room Air 02/09/17 08:00 97.3 58 18 127/71 96 Room Air 02/09/17 07:52 62 02/09/17 04:00 63 02/09/17 04:00 97.9 49 20 138/71 99 Room Air 02/09/17 00:00 56 02/09/17 00:00 98.6 58 18 116/70 99 Room Air Intake and Output 02/09/17 02/10/17 19:00 07:00 Intake Total 660 ml Output Total 650 ml Balance 10 ml Intake Oral 660 ml Output Urine Total 650 ml # Voids 3 Laboratory Tests 02/09/17 03:40: White Blood Count 8.4, Red Blood Count 3.22L, Hemoglobin 7.9L, Hematocrit 25.1L , Mean Corpuscular Volume 78L, Mean Corpuscular Hemoglobin 24.4L, Mean Corpuscular Hemoglobin Concent 31.4L, Red Cell Distribution Width 20.5H, Platelet Count 215, Mean Platelet Volume 7.3, Neutrophils (%) (Auto) , Lymphocytes (%) (Auto) , Monocytes (%) (Auto) , Eosinophils (%) (Auto) , Basophils (%) (Auto) Height (Feet): 5 Height (Inches): 1.00 Weight (Pounds): 118 Objective Thin woman NCAT supple CTA RRR soft ND NT no edema LETA CAMARENA Feb 09, 2017 22:51
[2017-02-10] VITALS: BP 141/76
[2017-02-10 04:00] VITALS: BP 134/73
[2017-02-10 06:01] LABS: BASOPHILS % (AUTO) 1.1 % (0.0-2.0); EOSINOPHILS % (AUTO) 8.1 % (0.0-3.0); LYMPHOCYTES % (AUTO) 21.7 % (20.0-45.0); MEAN CORPUSCULAR HEMOGLOBIN 25.7 PG (27.0-31.0); MEAN CORPUSCULAR HGB CONC 31.8 G/DL (32.0-36.0); MEAN CORPUSCULAR VOLUME 81 FL (80-99); MEAN PLATELET VOLUME 6.8 FL (6.5-10.1); MONOCYTES % (AUTO) 9.1 % (1.0-10.0); PLATELET COUNT 217 K/UL (150-450); RED BLOOD COUNT 4.16 M/UL (4.20-5.40); RED CELL DISTRIBUTION WIDTH 20.6 % (11.6-14.8); WHITE BLOOD COUNT 7.1 K/UL (4.8-10.8)
[2017-02-10 07:38] LABS: ALANINE AMINOTRANSFERASE 14 U/L (12-78); ALBUMIN/GLOBULIN RATIO 0.6 (1.0-2.7); ANION GAP 9 mmol/L (5-15); ASPARTATE AMINO TRANSFERASE 31 U/L (15-37); CALCIUM 8.5 MG/DL (8.5-10.1); CARBON DIOXIDE 28 MMOL/L (21-32); CHLORIDE 99 MMOL/L (98-107); CREATININE 0.7 MG/DL (0.55-1.30); MAGNESIUM 1.6 MG/DL (1.8-2.4); SODIUM 136 MMOL/L (136-145); TOTAL PROTEIN 6.9 G/DL (6.4-8.2)
[2017-02-10 08:00] VITALS: BP 133/68
--- NOTE | 2017-02-10 08:14 | General Progress Note ---
Assessment/Plan Problem List: (1) Acute GI bleeding ICD Codes: K92.2 - Gastrointestinal hemorrhage, unspecified SNOMED: 49799072 (2) Dyspnea (3) Bradycardia ICD Codes: R00.1 - Bradycardia, unspecified SNOMED: 35042020 (4) Anemia ICD Codes: D64.9 - Anemia, unspecified SNOMED: 517403694 Qualifiers: Qualified Codes: D64.9 - Anemia, unspecified (5) Acute exacerbation of CHF (congestive heart failure) ICD Codes: I50.9 - Heart failure, unspecified SNOMED: 91857409 Qualifiers: Qualified Codes: I50.9 - Heart failure, unspecified Status: stable, progressing Assessment/Plan iron supplements endoscopy when cleared by cards ppi diuresis pain rx d/w pt and son poc. Subjective ROS Limited/Unobtainable: No Constitutional: Reports: weakness HEENT: Reports: no symptoms Cardiovascular: Reports: no symptoms Respiratory: Reports: no symptoms Gastrointestinal/Abdominal: Reports: no symptoms Genitourinary: Reports: no symptoms Neurologic/Psychiatric: Reports: no symptoms Endocrine: Reports: no symptoms Hematologic/Lymphatic: Reports: anemia Allergies: Coded Allergies: No Known Allergies (Unverified , 12/11/12) All Systems: reviewed and negative except above Subjective c/o back pain. abd pain better. h/h better. HR better. bp controlled. Objective Last 24 Hour Vital Signs Date Time Temp Pulse Resp B/P (MAP) Pulse Ox O2 Delivery O2 Flow Rate FiO2 02/10/17 08:00 98.1 86 18 133/68 94 Room Air 02/10/17 04:00 55 02/10/17 04:00 97.5 54 16 134/73 94 Room Air 02/10/17 00:00 67 02/10/17 00:00 97.9 73 16 141/76 93 Room Air 02/09/17 20:00 59 02/09/17 20:00 98.1 64 20 140/79 94 Room Air 02/09/17 16:00 77 02/09/17 16:00 97.9 65 20 151/79 94 Room Air 02/09/17 13:00 97.2 61 20 154/82 97 Room Air 02/09/17 12:00 57 02/09/17 11:10 97.8 57 20 141/76 97 Room Air 11/29/17 10:55 97.7 57 20 121/61 97 Room Air Laboratory Tests 02/10/17 05:40: White Blood Count 7.1, Red Blood Count 4.16L, Hemoglobin 10.7#L, Hematocrit 33.7 #L, Mean Corpuscular Volume 81, Mean Corpuscular Hemoglobin 25.7L, Mean Corpuscular Hemoglobin Concent 31.8L, Red Cell Distribution Width 20.6H, Platelet Count 217, Mean Platelet Volume 6.8, Neutrophils (%) (Auto) 60.0, Lymphocytes (%) (Auto) 21.7, Monocytes (%) (Auto) 9.1, Eosinophils (%) (Auto) 8.1H, Basophils (%) (Auto) 1.1, Sodium Level 136, Potassium Level 4.0, Chloride Level 99, Carbon Dioxide Level 28, Anion Gap 9, Blood Urea Nitrogen 7, Creatinine 0.7, Estimat Glomerular Filtration Rate , Glucose Level 95, Calcium Level 8.5, Magnesium Level 1.6L, Total Bilirubin 0.3, Aspartate Amino Transf ( AST/SGOT) 31, Alanine Aminotransferase (ALT/SGPT) 14, Alkaline Phosphatase 82, Troponin I 0.375H, Total Protein 6.9, Albumin 2.6L, Globulin 4.3, Albumin/ Globulin Ratio 0.6L Height (Feet): 5 Height (Inches): 1.00 Weight (Pounds): 118 Objective General Appearance: WD/WN, alert Neck: supple Cardiovascular: normal rate Respiratory/Chest: chest wall non-tender, lungs clear, normal breath sounds Abdomen: normal bowel sounds, non tender, soft, no organomegaly Edema: trace edema 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
--- NOTE | 2017-02-10 11:01 | General Progress Note ---
Assessment/Plan Assessment/Plan Assessment - Anemia - presumed GI Bleed, although currently OB (-) - Acute [place] Recommendations - po diet as tolerated - monitor H&H - EGD when cleared by cardiology Subjective Allergies: Coded Allergies: No Known Allergies (Unverified , 12/11/12) Subjective Feels well tolerating PO no abd complaints no hematochezia Objective Last 24 Hour Vital Signs Date Time Temp Pulse Resp B/P (MAP) Pulse Ox O2 Delivery O2 Flow Rate FiO2 02/10/17 08:39 68 02/10/17 08:00 98.1 86 18 133/68 94 Room Air 02/10/17 04:00 55 02/10/17 04:00 97.5 54 16 134/73 94 Room Air 02/10/17 00:00 67 02/10/17 00:00 97.9 73 16 141/76 93 Room Air 02/09/17 20:00 59 02/09/17 20:00 98.1 64 20 140/79 94 Room Air 02/09/17 16:00 77 02/09/17 16:00 97.9 65 20 151/79 94 Room Air 02/09/17 13:00 97.2 61 20 154/82 97 Room Air 02/09/17 12:00 57 02/09/17 11:10 97.8 57 20 141/76 97 Room Air Intake and Output 02/10/17 02/11/17 19:00 07:00 Intake Total 240 ml Balance 240 ml Intake Oral 240 ml # Voids 1 Laboratory Tests 02/10/17 05:40: White Blood Count 7.1, Red Blood Count 4.16L, Hemoglobin 10.7#L, Hematocrit 33.7 #L, Mean Corpuscular Volume 81, Mean Corpuscular Hemoglobin 25.7L, Mean Corpuscular Hemoglobin Concent 31.8L, Red Cell Distribution Width 20.6H, Platelet Count 217, Mean Platelet Volume 6.8, Neutrophils (%) (Auto) 60.0, Lymphocytes (%) (Auto) 21.7, Monocytes (%) (Auto) 9.1, Eosinophils (%) (Auto) 8.1H, Basophils (%) (Auto) 1.1, Sodium Level 136, Potassium Level 4.0, Chloride Level 99, Carbon Dioxide Level 28, Anion Gap 9, Blood Urea Nitrogen 7, Creatinine 0.7, Estimat Glomerular Filtration Rate , Glucose Level 95, Calcium Level 8.5, Magnesium Level 1.6L, Total Bilirubin 0.3, Aspartate Amino Transf ( AST/SGOT) 31, Alanine Aminotransferase (ALT/SGPT) 14, Alkaline Phosphatase 82, Troponin I 0.375H, Total Protein 6.9, Albumin 2.6L, Globulin 4.3, Albumin/ Globulin Ratio 0.6L Height (Feet): 5 Height (Inches): 1.00 Weight (Pounds): 118 Objective Thin woman NCAT supple CTA RRR soft ND NT no edema LETA CAMARENA Feb 10, 2017 11:01
[2017-02-10 12:00] VITALS: BP 127/69
[2017-02-10 15:59] VITALS: BP 136/70
[2017-02-10 20:00] VITALS: BP 128/77
[2017-02-10] MEDS: Iron Sucrose 100 MG in NS 55 ML IV SCH (20:40)
[2017-02-10] MEDS ORDERED: KCl 10% 20 mEq/15ml liquid ORAL ONE (22:45)
--- NOTE | 2017-02-10 23:15 | Progress Note ---
DATE: 02/10/2017 CARDIOLOGY PROGRESS NOTE SUBJECTIVE: No chest pain. No shortness of breath. OBJECTIVE: VITAL SIGNS: Blood pressure 133/68, pulse 86, respirations 18, and afebrile. NECK: Supple. LUNGS: Clear. CARDIAC: Regular rate and rate. Normal S1, S2 with a fourth heart sound. ABDOMEN: Soft. No focal tenderness. No edema. LABORATORY DATA: White count 7.1, hemoglobin 10.7. Potassium 4, BUN 7, creatinine 0.7, and magnesium 1.6. Troponin 0.375. Albumin 2.6. IMPRESSION: 1. Severe anemia, severe iron deficiency. 2. Acute myocardial infarction with troponin slowly recovering. 3. Moderate to severe protein-calorie malnutrition. 4. Hypomagnesemia. 5. Sinus node disease with bradyarrhythmia, resolved off beta-blockers. 6. Acute diastolic congestive heart failure, improving with diuresis. PLAN: 1. Transfuse for hemoglobin less than 8 g. The patient refused a unit of blood yesterday. 2. Continue diuresis. 3. IV magnesium. 4. Optimize anti-failure and antianginal regimen. 5. Anticipate diagnostic gastrointestinal workup over the next 48 hours. Blu Hoskins M.D. DR: BLANCA JOB#: [id number] CC:
[2017-02-11] VITALS: BP 152/82
[2017-02-11 04:00] VITALS: BP 129/66
[2017-02-11 05:13] LABS: EOSINOPHILS % (AUTO) 7.7 % (0.0-3.0); LYMPHOCYTES % (AUTO) 20.6 % (20.0-45.0); MEAN CORPUSCULAR HEMOGLOBIN 25.6 PG (27.0-31.0); MEAN CORPUSCULAR HGB CONC 31.9 G/DL (32.0-36.0); MEAN CORPUSCULAR VOLUME 80 FL (80-99); MEAN PLATELET VOLUME 7.1 FL (6.5-10.1); NEUTROPHILS % (AUTO) 60.7 % (45.0-75.0); PLATELET COUNT 227 K/UL (150-450); RED BLOOD COUNT 3.92 M/UL (4.20-5.40); RED CELL DISTRIBUTION WIDTH 21.7 % (11.6-14.8)
[2017-02-11 05:48] LABS: ALANINE AMINOTRANSFERASE 18 U/L (12-78); ALBUMIN/GLOBULIN RATIO 0.6 (1.0-2.7); ANION GAP 7 mmol/L (5-15); ASPARTATE AMINO TRANSFERASE 19 U/L (15-37); CALCIUM 8.8 MG/DL (8.5-10.1); CARBON DIOXIDE 30 MMOL/L (21-32); CHLORIDE 96 MMOL/L (98-107); CREATININE 0.7 MG/DL (0.55-1.30); POTASSIUM 3.8 MMOL/L (3.5-5.1); SODIUM 133 MMOL/L (136-145); TOTAL PROTEIN 6.9 G/DL (6.4-8.2)
[2017-02-11 08:00] VITALS: BP 117/68
--- NOTE | 2017-02-11 10:10 | General Progress Note ---
Assessment/Plan Problem List: (1) Acute GI bleeding ICD Codes: K92.2 - Gastrointestinal hemorrhage, unspecified SNOMED: 12046618 (2) Dyspnea (3) Bradycardia ICD Codes: R00.1 - Bradycardia, unspecified SNOMED: 60148886 (4) Anemia ICD Codes: D64.9 - Anemia, unspecified SNOMED: 082046699 Qualifiers: Qualified Codes: D64.9 - Anemia, unspecified (5) Acute exacerbation of CHF (congestive heart failure) ICD Codes: I50.9 - Heart failure, unspecified SNOMED: 85370761 Qualifiers: Qualified Codes: I50.9 - Heart failure, unspecified Status: stable, progressing Assessment/Plan iron supplements endoscopy when cleared by cards ppi diuresis pain rx mri back d/w pt and son poc. Subjective ROS Limited/Unobtainable: No Constitutional: Reports: malaise, weakness HEENT: Reports: no symptoms Cardiovascular: Reports: no symptoms Respiratory: Reports: no symptoms Gastrointestinal/Abdominal: Reports: vomiting Genitourinary: Reports: no symptoms Neurologic/Psychiatric: Reports: no symptoms Endocrine: Reports: no symptoms Hematologic/Lymphatic: Reports: no symptoms Allergies: Coded Allergies: No Known Allergies (Unverified , 12/11/12) All Systems: reviewed and negative except above Subjective c/o back pain. vomited x 1 this am. abd pain better. h/h better. HR better. bp controlled. no bleeding. not cleared for egd yet Objective Last 24 Hour Vital Signs Date Time Temp Pulse Resp B/P (MAP) Pulse Ox O2 Delivery O2 Flow Rate FiO2 02/11/17 08:00 61 02/11/17 04:00 62 02/11/17 04:00 97.2 59 20 129/66 93 Room Air 02/11/17 00:00 64 02/11/17 00:00 98.1 62 20 152/82 93 Room Air 02/10/17 20:00 98.2 67 20 128/77 94 Room Air 02/10/17 20:00 63 02/10/17 17:48 97.8 02/10/17 16:00 59 02/10/17 15:59 97.8 58 18 136/70 97 Room Air 02/10/17 12:00 61 02/10/17 12:00 97.5 59 18 127/69 96 Room Air Laboratory Tests 02/10/17 21:00: Stool Occult Blood Negative 02/11/17 03:20: White Blood Count 8.0, Red Blood Count 3.92L, Hemoglobin 10.0L, Hematocrit 31.5L , Mean Corpuscular Volume 80, Mean Corpuscular Hemoglobin 25.6L, Mean Corpuscular Hemoglobin Concent 31.9L, Red Cell Distribution Width 21.7H, Platelet Count 227, Mean Platelet Volume 7.1, Neutrophils (%) (Auto) 60.7, Lymphocytes (%) (Auto) 20.6, Monocytes (%) (Auto) 10.0, Eosinophils (%) (Auto) 7.7H, Basophils (%) (Auto) 1.0, Sodium Level 133L, Potassium Level 3.8, Chloride Level 96L, Carbon Dioxide Level 30, Anion Gap 7, Blood Urea Nitrogen 10 , Creatinine 0.7, Estimat Glomerular Filtration Rate , Glucose Level 90, Calcium Level 8.8, Total Bilirubin 0.3, Aspartate Amino Transf (AST/SGOT) 19, Alanine Aminotransferase (ALT/SGPT) 18, Alkaline Phosphatase 84, Troponin I 0.300H, Pro-B-Type Natriuretic Peptide 1648H, Total Protein 6.9, Albumin 2.7L, Globulin 4.2, Albumin/Globulin Ratio 0.6L Height (Feet): 5 Height (Inches): 1.00 Weight (Pounds): 118 Objective General Appearance: WD/WN, alert Neck: supple Cardiovascular: normal rate Respiratory/Chest: chest wall non-tender, lungs clear, normal breath sounds Abdomen: normal bowel sounds, non tender, soft, no organomegaly Edema: trace edema 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
[2017-02-11 12:00] VITALS: BP 135/75
[2017-02-11 16:00] VITALS: BP 114/71
[2017-02-11 20:00] VITALS: BP 117/68
[2017-02-11] MEDS: Iron Sucrose 100 MG in NS 55 ML IV SCH (21:00)
--- NOTE | 2017-02-11 21:32 | General Progress Note ---
Assessment/Plan Assessment/Plan Assessment - Anemia - presumed GI Bleed, although currently OB (-) - Acute [place] Recommendations - po diet as tolerated - monitor H&H - EGD/colonoscopy Tuesday Subjective Allergies: Coded Allergies: No Known Allergies (Unverified , 12/11/12) Subjective Feels well tolerating PO no abd complaints no hematochezia d/w cardiology - cleared for GI w/u Tuesday Objective Last 24 Hour Vital Signs Date Time Temp Pulse Resp B/P (MAP) Pulse Ox O2 Delivery O2 Flow Rate FiO2 02/11/17 20:00 98.1 63 20 117/68 93 Room Air 02/11/17 16:00 97.2 61 20 114/71 95 Room Air 02/11/17 16:00 60 02/11/17 12:14 57 02/11/17 12:00 97.2 54 20 135/75 93 Room Air 02/11/17 08:00 97.0 53 20 117/68 94 Room Air 02/11/17 08:00 61 02/11/17 04:00 62 02/11/17 04:00 97.2 59 20 129/66 93 Room Air 02/11/17 00:00 64 02/11/17 00:00 98.1 62 20 152/82 93 Room Air Intake and Output 02/11/17 02/12/17 19:00 07:00 Intake Total 600 ml Balance 600 ml Intake Oral 600 ml # Voids 8 Laboratory Tests 02/11/17 03:20: White Blood Count 8.0, Red Blood Count 3.92L, Hemoglobin 10.0L, Hematocrit 31.5L , Mean Corpuscular Volume 80, Mean Corpuscular Hemoglobin 25.6L, Mean Corpuscular Hemoglobin Concent 31.9L, Red Cell Distribution Width 21.7H, Platelet Count 227, Mean Platelet Volume 7.1, Neutrophils (%) (Auto) 60.7, Lymphocytes (%) (Auto) 20.6, Monocytes (%) (Auto) 10.0, Eosinophils (%) (Auto) 7.7H, Basophils (%) (Auto) 1.0, Sodium Level 133L, Potassium Level 3.8, Chloride Level 96L, Carbon Dioxide Level 30, Anion Gap 7, Blood Urea Nitrogen 10 , Creatinine 0.7, Estimat Glomerular Filtration Rate , Glucose Level 90, Calcium Level 8.8, Total Bilirubin 0.3, Aspartate Amino Transf (AST/SGOT) 19, Alanine Aminotransferase (ALT/SGPT) 18, Alkaline Phosphatase 84, Troponin I 0.300H, Pro-B-Type Natriuretic Peptide 1648H, Total Protein 6.9, Albumin 2.7L, Globulin 4.2, Albumin/Globulin Ratio 0.6L Height (Feet): 5 Height (Inches): 1.00 Weight (Pounds): 118 Objective Thin woman NCAT supple CTA RRR soft ND NT no edema LETA CAMARENA Feb 11, 2017 21:32
[2017-02-12] VITALS (7 sets, daily range): BP systolic 121–153; BP diastolic 62–82
--- NOTE | 2017-02-12 01:15 | Progress Note ---
DATE: 02/11/2017 CARDIOLOGY PROGRESS NOTE SUBJECTIVE: The patient has no new signs of bleeding. OBJECTIVE: VITAL SIGNS: Blood pressure 129/66, pulse 59, and respirations 20. Monitor sinus and sinus bradycardia with atrial ectopy. No pauses. LUNGS: Good breath sounds. Few rales. HEART: Regular rhythm and rate. Normal S1, S2. ABDOMEN: Soft. EXTREMITIES: No edema. LABORATORY DATA: White count 8, hemoglobin 10. Troponin 0.3. Pro-natriuretic peptide 1600, potassium 3.8. Albumin 2.7. IMPRESSION: 1. Severe iron deficiency and anemia. 2. Acute myocardial infarction. 3. Acute diastolic congestive heart failure. 4. Sinus node disease with bradyarrhythmia, stabilized of beta-chey. PLAN: 1. No beta-blockers. 2. No anti-platelets or anticoagulants. 3. Diuresis. 4. Stabilizing for diagnostic endoscopy anticipated over the next 48 hours. She remains high risk however. Blu Hoskins M.D. DR: JIGNESH JOB#: [id number] CC:
[2017-02-12 05:20] LABS: BASOPHILS % (AUTO) 1.1 % (0.0-2.0); EOSINOPHILS % (AUTO) 4.1 % (0.0-3.0); LYMPHOCYTES % (AUTO) 22.8 % (20.0-45.0); MEAN CORPUSCULAR HGB CONC 32.1 G/DL (32.0-36.0); MEAN CORPUSCULAR VOLUME 81 FL (80-99); MEAN PLATELET VOLUME 6.7 FL (6.5-10.1); MONOCYTES % (AUTO) 9.8 % (1.0-10.0); NEUTROPHILS % (AUTO) 62.1 % (45.0-75.0); PLATELET COUNT 217 K/UL (150-450); RED BLOOD COUNT 3.61 M/UL (4.20-5.40); RED CELL DISTRIBUTION WIDTH 21.9 % (11.6-14.8); WHITE BLOOD COUNT 6.4 K/UL (4.8-10.8)
[2017-02-12 06:04] LABS: ALANINE AMINOTRANSFERASE 17 U/L (12-78); ALBUMIN/GLOBULIN RATIO 0.6 (1.0-2.7); ANION GAP 5 mmol/L (5-15); ASPARTATE AMINO TRANSFERASE 28 U/L (15-37); CALCIUM 8.3 MG/DL (8.5-10.1); CARBON DIOXIDE 32 MMOL/L (21-32); CHLORIDE 94 MMOL/L (98-107); CREATININE 0.7 MG/DL (0.55-1.30); POTASSIUM 3.4 MMOL/L (3.5-5.1); SODIUM 131 MMOL/L (136-145); TOTAL PROTEIN 6.4 G/DL (6.4-8.2)
--- NOTE | 2017-02-12 09:53 | Diagnostic Imaging Report ---
Indication: Back pain Technique: MRI examination of the Lumbar spine was performed in a 1.5 Lisa magnet. Sequences obtained include sagittal and axial T1 and T2 fast spin echo, and sagittal STIR. Comparison: none Findings: Bone marrow signal is slightly heterogeneous. There is no evidence of acute injury. Desiccation and narrowing of intervertebral discs demonstrated at multiple levels from L2-3 through L5-S1. L1-2: This level is unremarkable. Conus medullaris is seen just above this at the site of L1. L2-3: Mild disc disease with desiccation and narrowing and wide based concentric disc bulge noted. Mild facet hypertrophy noted. L4: Mild disc desiccation and narrowing, concentric disc, mild facet arthropathy demonstrated. L4-5: Mild anterolisthesis demonstrated. Moderate desiccation and disc, concentric disc, facet hypertrophy moderate in degree noted. Narrowing lateral recess and bilateral foraminal stenosis demonstrated. L5-S1: Moderate disc desiccation and narrowing demonstrated. Facet arthropathy demonstrated. Mild area of the neural foramina noted bilaterally. Bilobed cystic focus measuring 2.8 x 3 x 1.9 cm within the right hemipelvis just anterior to L5-S1 demonstrated. This might be ovarian in nature. 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 Incidental right pelvic 3 cm cystic focus possibly ovarian in nature.
--- NOTE | 2017-02-12 17:00 | Progress Note ---
DATE: 02/12/2017 CARDIOLOGY PROGRESS NOTE SUBJECTIVE: The patient has some back pain, no chest pain, and some shortness of breath with mobility. OBJECTIVE: VITAL SIGNS: Blood pressure 127/73, pulse 69, respiratory rate 18. Monitor, sinus with arrhythmia. Oxygen saturation on room air 94%. LABORATORY DATA: Sodium 131, potassium 3.4, chloride 94, BUN 12, and creatinine 0.7. Albumin 2.5. IMPRESSION: 1. Acute myocardial infarction. 2. Acute diastolic congestive heart failure. 3. Low back pain, rule out discogenic disease. 4. anemia, iron deficiency. 5. Hyponatremia. 6. Hypochloremia. 7. Sinus node disease with bradyarrhythmias exacerbated by beta-chey. PLAN: 1. Off IV fluids. 2. Off beta-chey due to bradyarrhythmia. 3. Hold anti-platelet therapy due to severe anemia. 4. Stabilize now for GI workup with endoscopy to be scheduled over the next 24 hours. 5. Transfuse for hemoglobin less than 8 g. 6. Cautious diuresis. Blu Hoskins M.D. DR: Dontae JOB#: [id number] CC:
--- NOTE | 2017-02-12 20:26 | General Progress Note ---
Assessment/Plan Assessment/Plan Assessment - Anemia - presumed GI Bleed, although currently OB (-) - Acute [place] Recommendations - po diet as tolerated - monitor H&H - EGD/colonoscopy Tuesday Subjective Allergies: Coded Allergies: No Known Allergies (Unverified , 12/11/12) Subjective Feels well tolerating PO no abd complaints no hematochezia Objective Last 24 Hour Vital Signs Date Time Temp Pulse Resp B/P (MAP) Pulse Ox O2 Delivery O2 Flow Rate FiO2 02/12/17 16:00 63 02/12/17 15:56 98.4 64 18 134/77 96 02/12/17 12:00 58 02/12/17 11:54 97.7 69 18 127/73 94 02/12/17 08:28 97.9 67 18 137/69 94 02/12/17 08:00 62 02/12/17 05:00 97.3 55 18 137/62 96 Room Air 02/12/17 04:45 58 02/12/17 04:00 98.2 65 16 141/75 93 Room Air 02/12/17 04:00 58 02/12/17 00:00 98.0 68 20 153/82 94 Room Air 02/12/17 00:00 60 Intake and Output 02/12/17 02/13/17 19:00 07:00 Intake Total 360 ml Output Total 250 ml Balance 110 ml Intake Oral 360 ml Output Urine Total 250 ml # Voids 2 Laboratory Tests 02/12/17 03:50: White Blood Count 6.4, Red Blood Count 3.61L, Hemoglobin 9.4L, Hematocrit 29.2L , Mean Corpuscular Volume 81, Mean Corpuscular Hemoglobin 26.0L, Mean Corpuscular Hemoglobin Concent 32.1, Red Cell Distribution Width 21.9H, Platelet Count 217, Mean Platelet Volume 6.7, Neutrophils (%) (Auto) 62.1, Lymphocytes (%) (Auto) 22.8, Monocytes (%) (Auto) 9.8, Eosinophils (%) (Auto) 4.1H, Basophils (%) (Auto) 1.1, Sodium Level 131L, Potassium Level 3.4L, Chloride Level 94L, Carbon Dioxide Level 32, Anion Gap 5, Blood Urea Nitrogen 12 , Creatinine 0.7, Estimat Glomerular Filtration Rate , Glucose Level 84, Calcium Level 8.3L, Total Bilirubin 0.3, Aspartate Amino Transf (AST/SGOT) 28, Alanine Aminotransferase (ALT/SGPT) 17, Alkaline Phosphatase 74, Total Protein 6.4, Albumin 2.5L, Globulin 3.9, Albumin/Globulin Ratio 0.6L Height (Feet): 5 Height (Inches): 1.00 Weight (Pounds): 118 Objective Thin woman NCAT supple CTA RRR soft ND NT no edema LETA CAMARENA Feb 12, 2017 20:26
[2017-02-12] MEDS: Iron Sucrose 100 MG in NS 55 ML IV SCH (20:40)
--- NOTE | 2017-02-12 20:53 | General Progress Note ---
Assessment/Plan Problem List: (1) Acute GI bleeding ICD Codes: K92.2 - Gastrointestinal hemorrhage, unspecified SNOMED: 42534551 (2) Dyspnea (3) Bradycardia ICD Codes: R00.1 - Bradycardia, unspecified SNOMED: 35233760 (4) Anemia ICD Codes: D64.9 - Anemia, unspecified SNOMED: 178751463 Qualifiers: Qualified Codes: D64.9 - Anemia, unspecified (5) Acute exacerbation of CHF (congestive heart failure) ICD Codes: I50.9 - Heart failure, unspecified SNOMED: 11972368 Qualifiers: Qualified Codes: I50.9 - Heart failure, unspecified Status: stable, progressing Assessment/Plan iron supplements endoscopy when cleared by - tuesday ppi diuresis pain rx d/w pt and son poc. Subjective Allergies: Coded Allergies: No Known Allergies (Unverified , 12/11/12) Subjective c/o back pain. h/h slightly lower. no bleeding. mri noted Objective Last 24 Hour Vital Signs Date Time Temp Pulse Resp B/P (MAP) Pulse Ox O2 Delivery O2 Flow Rate FiO2 02/12/17 20:00 97.7 67 20 121/66 94 Room Air 02/12/17 16:00 63 02/12/17 15:56 98.4 64 18 134/77 96 02/12/17 12:00 58 02/12/17 11:54 97.7 69 18 127/73 94 02/12/17 08:28 97.9 67 18 137/69 94 02/12/17 08:00 62 02/12/17 05:00 97.3 55 18 137/62 96 Room Air 02/12/17 04:45 58 02/12/17 04:00 98.2 65 16 141/75 93 Room Air 02/12/17 04:00 58 02/12/17 00:00 98.0 68 20 153/82 94 Room Air 02/12/17 00:00 60 Intake and Output 02/12/17 02/13/17 19:00 07:00 Intake Total 360 ml Output Total 250 ml Balance 110 ml Intake Oral 360 ml Output Urine Total 250 ml # Voids 2 Laboratory Tests 02/12/17 03:50: White Blood Count 6.4, Red Blood Count 3.61L, Hemoglobin 9.4L, Hematocrit 29.2L , Mean Corpuscular Volume 81, Mean Corpuscular Hemoglobin 26.0L, Mean Corpuscular Hemoglobin Concent 32.1, Red Cell Distribution Width 21.9H, Platelet Count 217, Mean Platelet Volume 6.7, Neutrophils (%) (Auto) 62.1, Lymphocytes (%) (Auto) 22.8, Monocytes (%) (Auto) 9.8, Eosinophils (%) (Auto) 4.1H, Basophils (%) (Auto) 1.1, Sodium Level 131L, Potassium Level 3.4L, Chloride Level 94L, Carbon Dioxide Level 32, Anion Gap 5, Blood Urea Nitrogen 12 , Creatinine 0.7, Estimat Glomerular Filtration Rate , Glucose Level 84, Calcium Level 8.3L, Total Bilirubin 0.3, Aspartate Amino Transf (AST/SGOT) 28, Alanine Aminotransferase (ALT/SGPT) 17, Alkaline Phosphatase 74, Total Protein 6.4, Albumin 2.5L, Globulin 3.9, Albumin/Globulin Ratio 0.6L Height (Feet): 5 Height (Inches): 1.00 Weight (Pounds): 118 Objective General Appearance: WD/WN, alert Neck: supple Cardiovascular: normal rate Respiratory/Chest: chest wall non-tender, lungs clear, normal breath sounds Abdomen: normal bowel sounds, non tender, soft, no organomegaly Edema: trace edema Neurologic: bread room hand II-XII grossly normal, no motor/sensory deficits LUCIO FRANKLIN Feb 12, 2017 20:53
[2017-02-12] MEDS ORDERED: traMADol 50mg tab ORAL PRN (21:00)
[2017-02-12] MEDS ORDERED: Sorbitol Solution UD 30ml ORAL ONE (21:00)
[2017-02-13] VITALS: BP 129/69
[2017-02-13 04:00] VITALS: BP 140/86
[2017-02-13] MEDS ORDERED: Sorbitol Solution UD 30ml ORAL ONE (07:30)
[2017-02-13] MEDS ORDERED: Nulytely 4L ORAL ONE (08:00)
--- NOTE | 2017-02-13 08:16 | General Progress Note ---
Assessment/Plan Problem List: (1) Acute GI bleeding ICD Codes: K92.2 - Gastrointestinal hemorrhage, unspecified SNOMED: 95149978 (2) Dyspnea (3) Bradycardia ICD Codes: R00.1 - Bradycardia, unspecified SNOMED: 87351603 (4) Anemia ICD Codes: D64.9 - Anemia, unspecified SNOMED: 598153220 Qualifiers: Qualified Codes: D64.9 - Anemia, unspecified (5) Acute exacerbation of CHF (congestive heart failure) ICD Codes: I50.9 - Heart failure, unspecified SNOMED: 73031782 Qualifiers: Qualified Codes: I50.9 - Heart failure, unspecified Status: stable, progressing Assessment/Plan iron supplements endoscopy when cleared by - tuesday ppi diuresis pain rx heme eval outpt spine eval for epidural d/w pt and son poc. Subjective ROS Limited/Unobtainable: No Constitutional: Reports: malaise, weakness HEENT: Reports: no symptoms Cardiovascular: Reports: no symptoms Respiratory: Reports: no symptoms Gastrointestinal/Abdominal: Reports: nausea Genitourinary: Reports: no symptoms Neurologic/Psychiatric: Reports: no symptoms Endocrine: Reports: no symptoms Hematologic/Lymphatic: Reports: anemia Allergies: Coded Allergies: No Known Allergies (Unverified , 12/11/12) All Systems: reviewed and negative except above Subjective c/o back pain. nausea and dizziness with pain meds. no cp/sob. no bleeding noted. Objective Last 24 Hour Vital Signs Date Time Temp Pulse Resp B/P (MAP) Pulse Ox O2 Delivery O2 Flow Rate FiO2 02/13/17 04:00 56 02/13/17 04:00 97.5 57 20 140/86 95 Room Air 02/13/17 00:00 97.9 60 20 129/69 95 Room Air 02/13/17 00:00 69 02/12/17 20:00 75 02/12/17 20:00 97.7 67 20 121/66 94 Room Air 02/12/17 16:00 63 02/12/17 15:56 98.4 64 18 134/77 96 02/12/17 12:00 58 02/12/17 11:54 97.7 69 18 127/73 94 02/12/17 08:28 97.9 67 18 137/69 94 Laboratory Tests 02/13/17 06:00: White Blood Count [Pending], Red Blood Count [Pending], Hemoglobin [Pending], Hematocrit [Pending], Mean Corpuscular Volume [Pending], Mean Corpuscular Hemoglobin [Pending], Mean Corpuscular Hemoglobin Concent [Pending], Red Cell Distribution Width [Pending], Platelet Count [Pending], Mean Platelet Volume [ Pending], Neutrophils (%) (Auto) [Pending], Lymphocytes (%) (Auto) [Pending], Monocytes (%) (Auto) [Pending], Eosinophils (%) (Auto) [Pending], Basophils (%) (Auto) [Pending], Sodium Level [Pending], Potassium Level [Pending], Chloride Level [Pending], Carbon Dioxide Level [Pending], Blood Urea Nitrogen [Pending], Creatinine [Pending], Estimat Glomerular Filtration Rate [Pending], Glucose Level [Pending], Calcium Level [Pending], Magnesium Level [Pending], Total Bilirubin [Pending], Aspartate Amino Transf (AST/SGOT) [Pending], Alanine Aminotransferase (ALT/SGPT) [Pending], Alkaline Phosphatase [Pending], Pro-B- Type Natriuretic Peptide [Pending], Total Protein [Pending], Albumin [Pending], Globulin [Pending] Height (Feet): 5 Height (Inches): 1.00 Weight (Pounds): 118 Objective General Appearance: WD/WN, alert Neck: supple Cardiovascular: normal rate Respiratory/Chest: chest wall non-tender, lungs clear, normal breath sounds Abdomen: normal bowel sounds, non tender, soft, no organomegaly Edema: trace edema Neurologic: director 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
[2017-02-13 08:19] LABS: ALANINE AMINOTRANSFERASE 49 U/L (12-78); ALBUMIN/GLOBULIN RATIO 0.7 (1.0-2.7); ANION GAP 7 mmol/L (5-15); ASPARTATE AMINO TRANSFERASE 85 U/L (15-37); CARBON DIOXIDE 29 MMOL/L (21-32); CHLORIDE 94 MMOL/L (98-107); CREATININE 0.7 MG/DL (0.55-1.30); MAGNESIUM 1.8 MG/DL (1.8-2.4); POTASSIUM 3.9 MMOL/L (3.5-5.1); SODIUM 130 MMOL/L (136-145); TOTAL PROTEIN 7.9 G/DL (6.4-8.2)
[2017-02-13 08:23] VITALS: BP 151/72
[2017-02-13 08:29] LABS: BASOPHILS % (AUTO) 1.2 % (0.0-2.0); EOSINOPHILS % (AUTO) 5.8 % (0.0-3.0); LYMPHOCYTES % (AUTO) 27.3 % (20.0-45.0); MEAN CORPUSCULAR HEMOGLOBIN 26.3 PG (27.0-31.0); MEAN CORPUSCULAR HGB CONC 32.1 G/DL (32.0-36.0); MEAN CORPUSCULAR VOLUME 82 FL (80-99); MEAN PLATELET VOLUME 7.1 FL (6.5-10.1); MONOCYTES % (AUTO) 9.1 % (1.0-10.0); NEUTROPHILS % (AUTO) 56.6 % (45.0-75.0); PLATELET COUNT 273 K/UL (150-450); RED BLOOD COUNT 4.47 M/UL (4.20-5.40); RED CELL DISTRIBUTION WIDTH 23.6 % (11.6-14.8); WHITE BLOOD COUNT 6.9 K/UL (4.8-10.8)
[2017-02-13 12:43] VITALS: BP 135/78
[2017-02-13 15:50] VITALS: BP 151/81
--- NOTE | 2017-02-13 19:11 | General Progress Note ---
Assessment/Plan Assessment/Plan Assessment - Anemia - presumed GI Bleed, although currently OB (-) - Acute [place] Recommendations - po diet as tolerated - monitor H&H - EGD/colonoscopy Tuesday Subjective Allergies: Coded Allergies: No Known Allergies (Unverified , 12/11/12) Subjective Feels well tolerating PO no abd complaints no hematochezia Objective Last 24 Hour Vital Signs Date Time Temp Pulse Resp B/P (MAP) Pulse Ox O2 Delivery O2 Flow Rate FiO2 02/13/17 16:00 82 02/13/17 15:50 97.5 60 18 151/81 100 02/13/17 12:43 97.7 67 18 135/78 97 02/13/17 12:00 64 02/13/17 08:23 97.3 64 18 151/72 98 02/13/17 08:00 66 02/13/17 04:00 56 02/13/17 04:00 97.5 57 20 140/86 95 Room Air 02/13/17 00:00 97.9 60 20 129/69 95 Room Air 02/13/17 00:00 69 02/12/17 20:00 75 02/12/17 20:00 97.7 67 20 121/66 94 Room Air Intake and Output 02/13/17 02/14/17 19:00 07:00 Intake Total 360 ml Output Total 450 ml Balance -90 ml Intake Oral 360 ml Output Urine Total 450 ml # Voids 1 # Bowel Movements 3 Laboratory Tests 02/13/17 06:00: White Blood Count 6.9, Red Blood Count 4.47, Hemoglobin 11.8L, Hematocrit 36.7L , Mean Corpuscular Volume 82, Mean Corpuscular Hemoglobin 26.3L, Mean Corpuscular Hemoglobin Concent 32.1, Red Cell Distribution Width 23.6H, Platelet Count 273, Mean Platelet Volume 7.1, Neutrophils (%) (Auto) 56.6, Lymphocytes (%) (Auto) 27.3, Monocytes (%) (Auto) 9.1, Eosinophils (%) (Auto) 5.8H, Basophils (%) (Auto) 1.2, Sodium Level 130L, Potassium Level 3.9, Chloride Level 94L, Carbon Dioxide Level 29, Anion Gap 7, Blood Urea Nitrogen 10 , Creatinine 0.7, Estimat Glomerular Filtration Rate , Glucose Level 94, Calcium Level 9.0, Magnesium Level 1.8, Total Bilirubin 0.4, Aspartate Amino Transf (AST/SGOT) 85H, Alanine Aminotransferase (ALT/SGPT) 49, Alkaline Phosphatase 94, Pro-B-Type Natriuretic Peptide 898H, Total Protein 7.9, Albumin 3.3L, Globulin 4.6, Albumin/Globulin Ratio 0.7L Height (Feet): 5 Height (Inches): 1.00 Weight (Pounds): 118 Objective Thin woman NCAT supple CTA RRR soft ND NT no edema LETA CAMARENA Feb 13, 2017 19:10
[2017-02-13 20:00] VITALS: BP 149/75
--- NOTE | 2017-02-13 21:30 | Progress Note ---
DATE: 02/13/2017 CARDIOLOGY PROGRESS NOTE SUBJECTIVE: The patient has no chest pain. She denies shortness of breath. She has been diuresed. She has not required any additional transfusion for the past several days. OBJECTIVE: VITAL SIGNS: Blood pressure is 151/81, pulse 60, respiratory rate 18, and afebrile. LUNGS: Clear. CARDIAC: Regular. Normal S1 and S2 with a fourth heart sound. ABDOMEN: Soft. EXTREMITIES: No edema. LABORATORY DATA: White count 6.9 and hemoglobin 11.8. Sodium 130, potassium 3.9, bicarbonate 29, BUN 10, and creatinine 0.7. Magnesium 1.8. Pro-natriuretic peptide is decreased to 898. Albumin 3.3. IMPRESSION: 1. Severe anemia. 2. Severe iron deficiency. 3. Acute myocardial infarction. 4. Acute diastolic congestive heart failure, improving. 5. Mild to moderate protein-calorie malnutrition. 6. Hyponatremia. 7. Hypochloremia. 8. Sinus node disease with history of bradycardia exacerbated by beta-blockers. PLAN: 1. Panendoscopy. 2. Hold anti-platelet therapy. 3. No beta-blockers. 4. Clonidine and diltiazem in this clinical setting. Blu Hoskins M.D. DR: Yanira JOB#: [id number] CC:
[2017-02-14] VITALS (12 sets, daily range): BP systolic 120–166; BP diastolic 69–81
--- NOTE | 2017-02-14 07:53 | General Progress Note ---
Assessment/Plan Problem List: (1) Acute GI bleeding ICD Codes: K92.2 - Gastrointestinal hemorrhage, unspecified SNOMED: 54238211 (2) Dyspnea (3) Bradycardia ICD Codes: R00.1 - Bradycardia, unspecified SNOMED: 20560539 (4) Anemia ICD Codes: D64.9 - Anemia, unspecified SNOMED: 908643396 Qualifiers: Qualified Codes: D64.9 - Anemia, unspecified (5) Acute exacerbation of CHF (congestive heart failure) ICD Codes: I50.9 - Heart failure, unspecified SNOMED: 71811356 Qualifiers: Qualified Codes: I50.9 - Heart failure, unspecified Status: stable, progressing Assessment/Plan iron supplements endoscopy when cleared by - tuesday ppi diuresis pain rx heme eval pt/ot eval outpt spine eval for epidural d/w pt and son poc. dc planning pending endoscopy results Subjective ROS Limited/Unobtainable: No Constitutional: Reports: malaise, weakness HEENT: Reports: no symptoms Cardiovascular: Reports: no symptoms Respiratory: Reports: no symptoms Gastrointestinal/Abdominal: Reports: nausea Genitourinary: Reports: no symptoms Neurologic/Psychiatric: Reports: no symptoms Endocrine: Reports: no symptoms Hematologic/Lymphatic: Reports: anemia Allergies: Coded Allergies: No Known Allergies (Unverified , 12/11/12) All Systems: reviewed and negative except above Subjective c/o back pain. nausea and dizziness with pain meds- improving. no cp/sob. no bleeding noted. Objective Last 24 Hour Vital Signs Date Time Temp Pulse Resp B/P (MAP) Pulse Ox O2 Delivery O2 Flow Rate FiO2 02/14/17 04:00 58 02/14/17 04:00 98.1 61 20 120/69 95 Room Air 02/14/17 00:00 61 02/14/17 00:00 98.2 64 20 143/75 96 Room Air 02/13/17 20:00 98.1 68 20 149/75 97 Room Air 02/13/17 20:00 90 02/13/17 16:00 82 02/13/17 15:50 97.5 60 18 151/81 100 02/13/17 12:43 97.7 67 18 135/78 97 02/13/17 12:00 64 02/13/17 08:23 97.3 64 18 151/72 98 02/13/17 08:00 66 Height (Feet): 5 Height (Inches): 1.00 Weight (Pounds): 118 Objective General Appearance: WD/WN, alert Neck: supple Cardiovascular: normal rate Respiratory/Chest: chest wall non-tender, lungs clear, normal breath sounds Abdomen: normal bowel sounds, non tender, soft, no organomegaly Edema: trace edema 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
[2017-02-14] MEDS ORDERED: Propofol 200mg/20ml IV ONE (09:00)
[2017-02-14] MEDS ORDERED: LR 1000ml ONE (09:00)
--- NOTE | 2017-02-14 09:03 | Pre-Procedure Note/Attestation ---
Pre-Procedure Note/Attestation Complete Prior to Procedure Planned Procedure: not applicable Procedure Narrative: EGD/Colon Indications for Procedure Pre-Operative Diagnosis: Anemia Attestation I attest that I discussed the nature of the procedure; its benefits; risks and complications; and alternatives (and the risks and benefits of such alternatives ), prior to the procedure, with the patient (or the patient's legal door to door sales representative). I attest that, if there was a reasonable possibility of needing a blood transfusion, the patient (or the patient's legal door to door sales representative) was given the [facility], [facility] standardized written summary, pursuant to the [place] Blood Safety Act ([place] Health and Safety Code # 1645, as amended). I attest that I re-evaluated the patient just prior to the surgery and that there has been no change in the patient's H&P, except as documented below: LETA CAMARENA Feb 14, 2017 09:03
[2017-02-14] MEDS ORDERED: LR 1000ml 1,000 ML IVLG SCH (09:10)
[2017-02-14] MEDS ORDERED: NS 500ML IV ONE (09:10)
[2017-02-14] MEDS ORDERED: fentaNYL 100 mcg/2 mL IV PRN (09:15)
--- NOTE | 2017-02-14 09:34 | Anethesia Preoperative Eval ---
Anesthesia Pre-op PMH/ROS General Date of Evaluation: Feb 14, 2017 Time of Evaluation: 08:57 Anesthesiologist: Mauricio ASA Score: ASA 3 Mallampati Score Class I : Soft palate, uvula, fauces, pillars visible Class II: Soft palate, uvula, fauces visible Class III: Soft palate, base of uvula visible Class IV: Only hard plate visible Mallampati Classification: Class II Surgeon: Kojo Diagnosis: Anemia Surgical Procedure: EGD, colonoscopy Family History: no anesthesia problems Allergies: Coded Allergies: No Known Allergies (Unverified , 12/11/12) Medications: see eMAR Past Medical History Cardiovascular: Reports: CAD, MA, other - CHF, Denies: HTN, valve dz, arrhythmia Pulmonary: Denies: asthma, COPD, TODD, other Gastrointestinal/Genitourinary: Denies: GERD, CRI, ESRD, other Neurologic/Psychiatric: Denies: dementia, CVA, depression/anxiety, TIA, other Endocrine: Denies: DM, hypothyroidism, steroids, other HEENT: Denies: cataract (L), cataract (R), glaucoma, KNIK (L), KNIK (R), other Hematology/Immune: Reports: anemia, Denies: DVT, bleeding disorder, other Musculoskeletal/Integumentary: Denies: OA, RA, DJD, DDD, edema, other PMH Narrative: Anemia, CAD, s/p MA, CHF PSxH Narrative: Hand surgery, nasal surgery Anesthesia Pre-op Phys. Exam Physician Exam Last Vital Signs Date Time Temp Pulse Resp B/P (MAP) Pulse Ox O2 Delivery O2 Flow Rate FiO2 02/14/17 08:32 97.5 62 18 144/77 97 02/14/17 04:00 Room Air Constitutional: NAD Neurologic: CN 2-12 intact Cardiovascular: RRR, no M/R/G Respiratory: CTA Gastrointestinal: S/NT/ND Airway Exam Mallampati Score: Class II MO: full ROM: full Teeth: missing Anesthesia Pre-op A/P Labs Chemistry Test 02/14/17 07:15 Troponin I 0.064 ng/mL (0.000-0.056) Studies Pre-op Studies: EKG - SR, APC's, NSST and TW changes, echo - EF 60%, normal wall motion Risk Assessment & Plan Assessment: Anemia, s/p MA this admission Plan: GA, TIVA Status Change Before Surgery: No Pre-Antibiotics Drug: None HUEY AKINS M.D. Feb 14, 2017 09:34
--- NOTE | 2017-02-14 09:35 | Immediate Post-Op Evaluation ---
Immediate Post-Op Evalulation Immediate Post-Op Evalulation Procedure: EGD, colonoscopy Date of Evaluation: Feb 14, 2017 Time of Evaluation: 10:30 IV Fluids: 200 Blood Pressure Systolic: 148 Blood Pressure Diastolic: 78 Pulse Rate: 57 Respiratory Rate: 19 O2 Sat by Pulse Oximetry: 99 Temperature (Fahrenheit): 97.2 Pain Score (1-10): 0 Nausea: No Vomiting: No Complications No complication Patient Status: awake, patent, none Hydration Status: adequate Drug: None HUEY AKINS M.D. Feb 14, 2017 09:35
--- NOTE | 2017-02-14 10:55 | Endoscopy Procedure Note ---
Endoscopy Procedure Note Indication for Procedure: anemia Procedures Performed: EGD, colonoscopy Operative Findings/Diagnosis: one small gastric erosion Specimen: yes Pt Tolerated Procedure Well: Yes Estimated Blood Loss: none Anesthesiologist: see report Anesthesia: moderate sedation Medication Given: see anesthesia record PEG: placed Implant(s) used?: No 50 yrs or older w/o bx or poly: Not Applicable 10yrs. F/U not recommended: Not Applicable If not recommended, why?: LETA CAMARENA Feb 14, 2017 10:55
--- NOTE | 2017-02-14 11:16 | Brief Operative Note ---
Immediate Post Operative Note Operative Note Chief Complaint: dysphagia Pre-op Diagnosis: Anemia Procedure: EGD/PEG Post-op Diagnosis: erosive gastritis / duodenitis Surgeon: alba Anesthesiologist: see report Anesthesia: MAC, moderate sedation Specimen: yes Complications: none Condition: stable Fluids: see report Estimated Blood Loss: none Drains: none Implant(s) used?: No LETA CAMARENA Feb 14, 2017 11:16
--- NOTE | 2017-02-14 11:18 | Brief Operative Note ---
Immediate Post Operative Note Operative Note Chief Complaint: anemia Pre-op Diagnosis: Anemia Procedure: EGD/PEG Post-op Diagnosis: erosive gastritis / duodenitis Post-op Diagnosis: same as pre-op plus Surgeon: alba Anesthesiologist: see report Anesthesia: MAC Specimen: yes Complications: none Condition: stable Fluids: see report Estimated Blood Loss: none Drains: none Implant(s) used?: No LETA CAMARENA Feb 14, 2017 11:18
--- NOTE | 2017-02-14 11:21 | Brief Operative Note ---
Immediate Post Operative Note Operative Note Chief Complaint: anemia Pre-op Diagnosis: Anemia Procedure: EGD/PEG Post-op Diagnosis: erosive gastritis / duodenitis Surgeon: alba Anesthesiologist: see report Anesthesia: MAC Specimen: yes Complications: none Condition: stable Fluids: see report Estimated Blood Loss: none Drains: none Implant(s) used?: No LETA CAMARENA Feb 14, 2017 11:21
--- NOTE | 2017-02-14 11:35 | General Progress Note ---
Assessment/Plan Assessment/Plan Assessment - Anemia, microcytic - presumed GI Bleed, although currently OB (-) x 2 - Acute LA - flow related, normal EF on echo Recommendations - monitor H&H - EGD/colonoscopy today Post Procedure Addendum EGD - one single 2 mm gastric erosion, biopsied. O/w normal EGD. Biopsied normal duodenum. Colon - normal to TI. No biopsies Plan - will proceed with capsule endoscopy in am. Subjective Allergies: Coded Allergies: No Known Allergies (Unverified , 12/11/12) Subjective Feels well seen in GI lab NPO for precedure Objective Last 24 Hour Vital Signs Date Time Temp Pulse Resp B/P (MAP) Pulse Ox O2 Delivery O2 Flow Rate FiO2 02/14/17 11:00 54 18 155/75 98 Room Air 02/14/17 10:50 58 18 158/78 96 Room Air 02/14/17 10:40 97.0 59 17 166/81 97 Room Air 02/14/17 10:30 58 18 158/73 96 Room Air 02/14/17 10:25 52 16 163/75 100 Simple Mask 6.0 02/14/17 10:25 57 19 99 02/14/17 10:22 97.2 58 14 148/78 95 Simple Mask 6.0 02/14/17 08:32 97.5 62 18 144/77 97 02/14/17 04:00 58 02/14/17 04:00 98.1 61 20 120/69 95 Room Air 02/14/17 00:00 61 02/14/17 00:00 98.2 64 20 143/75 96 Room Air 02/13/17 20:00 98.1 68 20 149/75 97 Room Air 02/13/17 20:00 90 02/13/17 16:00 82 02/13/17 15:50 97.5 60 18 151/81 100 02/13/17 12:43 97.7 67 18 135/78 97 02/13/17 12:00 64 Intake and Output 02/14/17 02/15/17 19:00 07:00 Intake Total 200 ml Output Total 0 ml Balance 200 ml IV Total 200 ml Estimated Blood Loss 0 ml Laboratory Tests 02/14/17 07:15: Troponin I 0.064H Height (Feet): 5 Height (Inches): 1.00 Weight (Pounds): 118 Objective Thin woman NCAT supple CTA RRR soft ND NT no edema LETA CAMARENA Feb 14, 2017 11:35
[2017-02-14] MEDS ORDERED: D5NS 1,000 ML IV SCH (21:00)
--- NOTE | 2017-02-14 23:45 | Procedure Note ---
DATE OF PROCEDURE: 02/14/2017 GASTROENTEROLOGY PROCEDURE REPORT SURGEON: Amy Varma M.D. PROCEDURE: Upper gastrointestinal endoscopy with biopsy as well as colonoscopy. ANESTHESIA: Please see the separate anesthesiologist notes for details. PRE-ENDOSCOPIC DIAGNOSIS: Severe anemia. POST-ENDOSCOPIC DIAGNOSES: 1. A single erosion in the gastric antrum of doubtful significance status post biopsy. 2. Status post random biopsy of the duodenum. 3. Normal colonoscopy as well as terminal ileum without any lesions to explain the patient's anemia. DESCRIPTION OF PROCEDURE: The procedure, its risks, indications, alternatives, and possible complications were explained to the patient. Informed consent was obtained. The patient was then sedated in the left lateral decubitus position. A diagnostic upper endoscope was introduced into the oropharynx and advanced to the duodenum. It was then removed and the colonoscope was introduced into the rectum and advanced to the terminal ileum. It was then removed. The findings of the biopsies were as listed above. The endoscope was removed. Also colonoscope was removed. The patient was sent to Recovery in good condition. COMPLICATIONS: None. ASSESSMENT: There are no significant abnormalities on these two examinations to explain the patient's severe anemia. There is a single erosion seen in the mid body of the stomach that is of doubtful significance. The patient should proceed with a small bowel capsule endoscopy to evaluate the upper gastrointestinal tract tomorrow. RECOMMENDATIONS: 1. Clear liquid diet today. 2. Small bowel capsule endoscopy tomorrow. Amy Varma M.D. DR: OSMANI JOB#: [id number] CC:
[2017-02-15] VITALS: BP 146/80
[2017-02-15 04:00] VITALS: BP 149/78
[2017-02-15] MEDS ORDERED: Nulytely 4L ORAL ONE (05:00)
--- NOTE | 2017-02-15 05:30 | Progress Note ---
DATE: 02/14/2017 CARDIOLOGY PROGRESS NOTE SUBJECTIVE: The patient underwent panendoscopy today. No source of bleeding was found. A small bowel capsule study is now recommended in view of severe iron deficiency. OBJECTIVE: VITAL SIGNS: Blood pressure 142/74, pulse 81, respirations 18, and afebrile. LUNGS: Clear. CARDIAC: Regular. Normal S1 and S2 with a fourth heart sound. ABDOMEN: Soft and nontender. EXTREMITIES: No edema. IMPRESSION: 1. Severe anemia. 2. Severe iron deficiency. 3. Acute myocardial infarction. 4. Acute diastolic congestive heart failure, now compensated. 5. Sinus node disease with sinus arrhythmia and bradycardia now stable off beta-blockers. 6. Mild to moderate protein-calorie malnutrition. PLAN: 1. Start anti-platelet therapy. 2. Avoid beta-blockers. 3. Iron supplements. 4. Nutritional supplements. 5. Await results of capsule study. 6. Discontinue telemetry. Blu Hoskins M.D. DR: JOSE CRUZ JOB#: [id number] CC:
[2017-02-15 08:00] VITALS: BP 139/80
--- NOTE | 2017-02-15 08:14 | General Progress Note ---
Assessment/Plan Problem List: (1) Acute GI bleeding ICD Codes: K92.2 - Gastrointestinal hemorrhage, unspecified SNOMED: 10834800 (2) Dyspnea (3) Bradycardia ICD Codes: R00.1 - Bradycardia, unspecified SNOMED: 20366031 (4) Anemia ICD Codes: D64.9 - Anemia, unspecified SNOMED: 704276712 Qualifiers: Qualified Codes: D64.9 - Anemia, unspecified (5) Acute exacerbation of CHF (congestive heart failure) ICD Codes: I50.9 - Heart failure, unspecified SNOMED: 53314026 Qualifiers: Qualified Codes: I50.9 - Heart failure, unspecified Status: stable, progressing Assessment/Plan iron supplements ppi capsule endoscopy diuresis pain rx heme eval pt/ot eval outpt spine eval for epidural d/w pt and son poc. Subjective ROS Limited/Unobtainable: No Constitutional: Reports: malaise, weakness HEENT: Reports: no symptoms Cardiovascular: Reports: no symptoms Respiratory: Reports: no symptoms Gastrointestinal/Abdominal: Reports: nausea Genitourinary: Reports: no symptoms Neurologic/Psychiatric: Reports: no symptoms Endocrine: Reports: no symptoms Hematologic/Lymphatic: Reports: anemia Allergies: Coded Allergies: No Known Allergies (Unverified , 12/11/12) All Systems: reviewed and negative except above Subjective c/o back pain. nausea and dizziness with pain meds- improving. no cp/sob. no bleeding noted. s/p endoscopy. no obvious bleeding noted. npo for capsule endoscopy Objective Last 24 Hour Vital Signs Date Time Temp Pulse Resp B/P (MAP) Pulse Ox O2 Delivery O2 Flow Rate FiO2 02/15/17 04:00 98.1 60 18 149/78 97 Room Air 02/15/17 03:43 61 02/15/17 00:00 98.2 71 20 146/80 97 Room Air 02/15/17 00:00 61 02/14/17 20:00 98.1 67 20 138/71 97 Room Air 02/14/17 19:54 97 02/14/17 16:17 97.7 81 18 143/74 96 02/14/17 16:00 76 02/14/17 12:00 66 02/14/17 11:46 97.0 60 18 150/78 98 02/14/17 11:00 54 18 155/75 98 Room Air 02/14/17 10:50 58 18 158/78 96 Room Air 02/14/17 10:40 97.0 59 17 166/81 97 Room Air 02/14/17 10:30 58 18 158/73 96 Room Air 02/14/17 10:25 52 16 163/75 100 Simple Mask 6.0 02/14/17 10:25 57 19 99 02/14/17 10:22 97.2 58 14 148/78 95 Simple Mask 6.0 02/14/17 08:32 97.5 62 18 144/77 97 Height (Feet): 5 Height (Inches): 5.00 Weight (Pounds): 118 Objective General Appearance: WD/WN, alert Neck: supple Cardiovascular: normal rate Respiratory/Chest: chest wall non-tender, lungs clear, normal breath sounds Abdomen: normal bowel sounds, non tender, soft, no organomegaly Edema: trace edema Neurologic: java swing developer II-XII grossly normal, no motor/sensory deficits LUCIO FRANKLIN Feb 15, 2017 08:14
[2017-02-15 10:02] LABS: ALANINE AMINOTRANSFERASE 45 U/L (12-78); ALBUMIN/GLOBULIN RATIO 0.7 (1.0-2.7); ANION GAP 7 mmol/L (5-15); ASPARTATE AMINO TRANSFERASE 51 U/L (15-37); CALCIUM 8.3 MG/DL (8.5-10.1); CARBON DIOXIDE 28 MMOL/L (21-32); CHLORIDE 104 MMOL/L (98-107); CREATININE 0.6 MG/DL (0.55-1.30); MAGNESIUM 1.7 MG/DL (1.8-2.4); POTASSIUM 3.1 MMOL/L (3.5-5.1); SODIUM 139 MMOL/L (136-145); TOTAL PROTEIN 7.1 G/DL (6.4-8.2)
[2017-02-15 10:14] LABS: BASOPHILS % (AUTO) 2.2 % (0.0-2.0); EOSINOPHILS % (AUTO) 5.8 % (0.0-3.0); MEAN CORPUSCULAR HEMOGLOBIN 25.3 PG (27.0-31.0); MEAN CORPUSCULAR HGB CONC 29.5 G/DL (32.0-36.0); MEAN CORPUSCULAR VOLUME 86 FL (80-99); MEAN PLATELET VOLUME 5.9 FL (6.5-10.1); MONOCYTES % (AUTO) 10.4 % (1.0-10.0); NEUTROPHILS % (AUTO) 59.7 % (45.0-75.0); PLATELET COUNT 216 K/UL (150-450); RED BLOOD COUNT 4.19 M/UL (4.20-5.40); RED CELL DISTRIBUTION WIDTH 24.6 % (11.6-14.8); WHITE BLOOD COUNT 5.7 K/UL (4.8-10.8)
[2017-02-15] MEDS ORDERED: D5NS 1,000 ML IV SCH (11:00)
[2017-02-15] MEDS ORDERED: Norco 10mg/325mg tab ORAL PRN ×2 (11:00)
[2017-02-15] MEDS ORDERED: traMADol 50mg tab ORAL PRN (11:00)
[2017-02-15 11:47] VITALS: BP 161/71
[2017-02-15] MEDS ORDERED: Tubing IV Secondary IV ONE (15:49)
[2017-02-15] MEDS ORDERED: D5NS 1000ml IV ONE (15:49)
[2017-02-15] MEDS ORDERED: NS 500ML ONE (15:49)
[2017-02-15 16:00] VITALS: BP 129/70
--- NOTE | 2017-02-15 16:58 | General Progress Note ---
Assessment/Plan Assessment/Plan Assessment - Anemia, microcytic - presumed GI Bleed, although currently OB (-) x 2 - negative EGD/Colon - Acute [place] - flow related, normal EF on echo Recommendations - monitor H&H - capsule endoscopy today - d/c planning - outpatient f/u Subjective Allergies: Coded Allergies: No Known Allergies (Unverified , 12/11/12) Subjective Feels well d/w patient regarding capsule endoscopy Objective Last 24 Hour Vital Signs Date Time Temp Pulse Resp B/P (MAP) Pulse Ox O2 Delivery O2 Flow Rate FiO2 02/15/17 16:00 98.6 62 21 129/70 97 Room Air 02/15/17 11:47 97.3 68 20 161/71 97 Room Air 02/15/17 08:00 97.0 66 20 139/80 97 Room Air 02/15/17 08:00 59 02/15/17 04:00 98.1 60 18 149/78 97 Room Air 02/15/17 03:43 61 02/15/17 00:00 98.2 71 20 146/80 97 Room Air 02/15/17 00:00 61 02/14/17 20:00 98.1 67 20 138/71 97 Room Air 02/14/17 19:54 97 Intake and Output 02/15/17 02/16/17 19:00 07:00 Intake Total 375 ml Balance 375 ml IV Total 375 ml # Voids 3 Laboratory Tests 02/15/17 09:12: White Blood Count 5.7, Red Blood Count 4.19L, Hemoglobin 10.6L, Hematocrit 35.8L , Mean Corpuscular Volume 86, Mean Corpuscular Hemoglobin 25.3L, Mean Corpuscular Hemoglobin Concent 29.5L, Red Cell Distribution Width 24.6H, Platelet Count 216, Mean Platelet Volume 5.9L, Neutrophils (%) (Auto) 59.7, Lymphocytes (%) (Auto) 22.0, Monocytes (%) (Auto) 10.4H, Eosinophils (%) (Auto) 5.8H, Basophils (%) (Auto) 2.2H, Sodium Level 139, Potassium Level 3.1L, Chloride Level 104, Carbon Dioxide Level 28, Anion Gap 7, Blood Urea Nitrogen 4L , Creatinine 0.6, Estimat Glomerular Filtration Rate , Glucose Level 106, Calcium Level 8.3L, Magnesium Level 1.7L, Total Bilirubin 0.4, Aspartate Amino Transf (AST/SGOT) 51H, Alanine Aminotransferase (ALT/SGPT) 45, Alkaline Phosphatase 76, Total Protein 7.1, Albumin 2.8L, Globulin 4.3, Albumin/Globulin Ratio 0.7L Height (Feet): 5 Height (Inches): 5.00 Weight (Pounds): 118 Objective Thin woman NCAT supple CTA RRR soft ND NT no edema LETA CAMARENA Feb 15, 2017 16:58
[2017-02-15 20:00] VITALS: BP 126/65
--- NOTE | 2017-02-16 03:00 | Progress Note ---
DATE: 02/15/2017 CARDIOLOGY PROGRESS NOTE SUBJECTIVE: No chest pain. No shortness of breath. Gastrointestinal workup is negative to date. Capsule study planned today. OBJECTIVE: VITAL SIGNS: Blood pressure 129/70 to 161/71, heart rate 62, respiratory rate 21, and afebrile. LUNGS: Clear. CARDIAC: Regular. Normal S1 and S2 with a fourth heart sound. ABDOMEN: Soft. EXTREMITIES: No edema. IMPRESSION: 1. Severe iron deficiency with anemia. 2. Presumed gastrointestinal bleed although workup and stool occult blood tests are negative. 3. Acute myocardial infarction. 4. Sinus node disease. 5. Sinus arrhythmia. 6. Resolved bradycardia. 7. Moderate protein-calorie malnutrition. 8. Acute diastolic congestive heart failure, now compensated. 9. Hypomagnesemia. PLAN: 1. Antiplatelet therapy. 2. No beta-blockers due to bradyarrhythmias. 3. Capsule study per GI. 4. Outpatient monitoring of hemoglobin. 5. Replace potassium and magnesium. 6. Long-term protein supplement. 7. No indication for chronic diuretic therapy at this time. Blu Hoskins M.D. DR: JOSE CRUZ JOB#: [id number] CC:
--- NOTE | 2017-02-17 17:09 | Discharge Summary ---
Discharge Summary Hospital Course Date of Admission Feb 06, 2017 at 17:50 Date of Discharge Feb 15, 2017 at 22:16 Admitting Diagnosis anemia/chf/trop elevation HPI Kim Mane is a 81 year old female who was admitted on Feb 06, 2017 at 17: 50 for Anemia; Congestive Heart Failure;Troponin Elevatn Hospital Course [id number] Discharge Discharge Disposition Patient was discharged to Home (01) Discharge Diagnoses: Dionna Doll NP Feb 17, 2017 17:09
--- NOTE | 2017-02-17 22:30 | Discharge Summary 2 SIG ---
DATE OF ADMISSION: 02/06/2017 DATE OF DISCHARGE: 02/15/2017 CONSULTANTS: 1. Blu Hoskins M.D. 2. Amy Varma M.D. BRIEF HOSPITAL COURSE: The patient is a pleasant 81-year-old female, who has no medical history and presented with complaints of 1-week mild shortness of breath and lower extremity edema. She had been taking Advil for several months and was taking 12-14 tablets a day for the past 10 days. On evaluation at ED, she was noted to be anemic. Hemoglobin was 4.9. She had lower extremity edema that was consistent with possibly mild CHF and troponin was elevated to 1.5. BNP was 1400. EKG was in normal sinus rhythm with right bundle-branch block and nonspecific ST changes. Chest x-ray revealed pulmonary venous congestion. She was admitted to [facility] for anemia, acute AK, and CHF. She was given 2 units of packed RBC blood transfusion. She underwent cardiac evaluation. Troponins were monitored. The patient had acute myocardial infarction precipitated by severe anemia and hypoperfusion of the coronary bed. She was given O2 support and was given twice-daily proton pump inhibitors. Unable to give antiplatelets or anticoagulants secondary to possible GI bleed. She was given diuresis during transfusion. On 02/09/2017, there was again a drop in hemoglobin. She again received 1 unit packed RBC. She received a total of 3 units during inpatient stay. She was taken off beta-blockers due to bradyarrhythmia and troponin was slowly recovering. Anemia workup showed severe iron deficiency. She underwent echocardiogram done with ejection fraction of 55% to 60%, right ventricular systolic pressure of 61 consistent with severe pulmonary hypertension, there was trace aortic regurgitation, moderate mitral regurgitation, [id number] tricuspid regurgitation, and moderate pulmonic regurgitation. MRI of the spine done showed degenerative disease of the lumbar spine with incidental finding of ovarian cyst. Finally on 02/14/2017, she was cleared to undergo endoscopy. She underwent EGD and colonoscopy. There was a single erosion seen at the gastric antrum, status post biopsy. There was normal colonoscopic exam as well as terminal ileum without any lesions that explained the patient's anemia. There were no significant abnormalities seen to explain the patient's severe anemia. She then underwent small bowel capsule endoscopy. Diet was advanced. She was then cleared for discharge. Antiplatelet therapy was initiated. Advised outpatient monitoring of hemoglobin. The patient to follow up with GI regarding capsule endoscopy study. FINAL DIAGNOSES: 1. Acute gastrointestinal bleed. 2. Bradycardia. 3. Severe iron deficiency anemia. 4. Presumed gastrointestinal bleed. 5. Acute myocardial infarction. 6. Sinus node disease. 7. Resolved bradycardia. 8. Acute diastolic congestive heart failure, now compensated. 9. Moderate protein-calorie malnutrition. 10. Hypomagnesemia. 11. Severe anemia, requiring blood transfusion. DISPOSITION: The patient was discharged home. FOLLOWUP: Advised to follow up with PMD as an outpatient and to follow up with GI regarding capsule endoscopy report. She needs outpatient monitoring of hemoglobin while on antiplatelet therapy. Norris Austin M.D. I have been assigned to dictate discharge summary on this account and I was not involved in the patient's management. Dionna Doll N.P. DR: LISS JOB#: [id number] CC: MARTINEZ
--- NOTE | 2017-02-25 00:45 | Procedure Note ---
DATE OF PROCEDURE: 02/15/2017 SURGEON: Marty Stock M.D. REFERRING PHYSICIANS: 1. Amy Varma M.D. 2. Norris Austin M.D. PROCEDURE: Capsule endoscopy. INDICATION: Anemia, gastrointestinal bleeding. The procedure, risks, benefits, and possible consequences, including hemorrhage, aspiration, perforation and infection, and alternative treatments, were explained to the patient/legal guardian by Dr. Marty Stock and the patient/legal guardian understood and accepted these risks. DESCRIPTION OF PROCEDURE: After informed consent was obtained and the patient was able to swallow the capsule, a capsule endoscopy was done. The capsule spent 24 minutes in the stomach before entering the small intestine. Capsule spent about 5 hours and 27 minutes in the small intestine. Quality of prep was good. There was no obvious active bleeding. There was only one lesion, may be an area of an ulceration. A shallow ulceration was seen at 52 minutes and 12 seconds without any active bleeding at this time. This was only a single lesion. The significance of this lesion at this time is unclear. The rest of the exam did not show any further findings. As I mentioned, capsule entered the colon at 5 hours and 27 minutes. SUMMARY OF FINDINGS: 1. Good capsule endoscopy examination with good prep, 5 hours and 27 minutes of the small intestine time. 2. One lesion at 62 minutes and 12 seconds . It is an inflamed fold with a shallow erosion, unlikely to be the source of bleeding at this time. RECOMMENDATIONS: The patient to follow up with Dr. Amy Varma for further management of her anemia. I want to thank Dr. Varma and Dr. Austin for this kind referral. Marty Stock M.D. DR: JORDYN JOB#: [id number] CC: Amy Varma M.D.; Fax#: [phone] Norris Austin M.D.
== END 2017-02-15 22:16 | disposition home or self-care (01) | DRG 280 ==
LOC: EMR 14:43 → EDBEDREQSVC 15:51 → EDBEDREQ 15:57 → 2W 17:50 → EDBEDREQ 19:40 → 2W 19:55 → 2E 02-12 04:33 → 4E 02-15 10:00
PROC: 30233N1 Transfusion of Nonautologous Red Blood Cells into Peripheral Vein, Percutaneous Approach (ICD-10-PCS; principal; 2017-02-06)
PROC: 0DB98ZX Excision of Duodenum, Via Natural or Artificial Opening Endoscopic, Diagnostic (ICD-10-PCS; 2017-02-14 09:15)
PROC: 0DJD8ZZ Inspection of Lower Intestinal Tract, Via Natural or Artificial Opening Endoscopic (ICD-10-PCS; 2017-02-14 09:15)
DX: I21.9 Acute myocardial infarction, unspecified (principal); I50.31 Acute diastolic (congestive) heart failure; E44.0 Moderate protein-calorie malnutrition; E87.8 Other disorders of electrolyte and fluid balance, not elsewhere classified; K92.2 Gastrointestinal hemorrhage, unspecified; I36.1 Nonrheumatic tricuspid (valve) insufficiency; E83.42 Hypomagnesemia; Z68.1 Body mass index [BMI] 19.9 or less, adult; R00.1 Bradycardia, unspecified; I45.10 Unspecified right bundle-branch block; E87.6 Hypokalemia; D50.9 Iron deficiency anemia, unspecified; I34.0 Nonrheumatic mitral (valve) insufficiency; M19.90 Unspecified osteoarthritis, unspecified site; M54.5 Low back pain
CPT/HCPCS: 36415; 36430; 71010; 72148; 80048; 80053; 80061; 82270; 82550; 82553; 82728; 83540; 83550; 83735; 83880; 84443; 84484; 85007; 85025; 85610; 85730; 86850; 86900; 86901; 86920; 93005; 93306; 94003; 94150; J8499